=== PATIENT | male | born 1940 | race Caucasian/White ===

== ENCOUNTER 2017-11-14 11:52 | Inpatient (IN) ==
[2017-11-14] MEDS ORDERED: MORPHINE 2 MG/1 ML SYRINGE IV STA ×2 (13:52→17:01)
[2017-11-14] MEDS ORDERED: ONDANSETRON 4 MG/2 ML VIAL IV STA (13:52)
[2017-11-14] MEDS ORDERED: SODIUM CHLORIDE 0.9% 1,000 ML IV STA (13:52)
[2017-11-14] MEDS ORDERED: ONDANSETRON 4 MG/2 ML VIAL ONE (14:08)
[2017-11-14] MEDS ORDERED: MORPHINE 2 MG/1 ML SYRINGE ONE ×2 (14:08→17:02)
[2017-11-14 14:28] LABS: Basophils # 0.1 10*3/uL (0.0-0.2); Basophils % 0.7 % (0.0-0.8); Eosinophils # 0.3 10*3/uL (0.0-0.87); Eosinophils % 4.9 % (0.00-10.9); Hematocrit 29.1 VOL% (42.0-52.0); Hemoglobin 10.2 GM/DL (14.0-18.0); Immature Granulocytes % 0.9 %; Immature Granulocytes Absolute 0.06 #; Lymphocytes # 1.4 10*3/uL (1.4-4.0); Lymphocytes % 20.1 % (21.2-54.2); Mean Corpuscular HGB Conc 35.1 GM/DL (32-36); Mean Corpuscular Hemoglobin 32 PG (27-34); Mean Corpuscular Volume 92.4 FL (87-102); Mean Platelet Volume 9.7 FL (9.6-12.0); Monocytes # 0.4 10*3/uL (0.11-0.8); Monocytes % 5.6 % (1.7-12.7); Neutrophils # 4.8 10*3/uL (1.4-7.4); Neutrophils % 67.8 % (38.7-73.9); Platelet Count 126 T/CUMM (130-400); Red Blood Count 3.15 MC/CUMM (3.8-5.5); Red Cell Distribution Width 17.2 % (9.3-17.3)
[2017-11-14 14:44] LABS: Calcium 8.6 MG/DL (8.5-10.1); Osmolality,Calculated 275.8 MOS/KG (273-304); Potassium 4.1 MMOL/L (3.5-5.1)
[2017-11-14] MEDS ORDERED: GLUCAGON 1 MG VIAL IM PRN (15:02)
[2017-11-14] MEDS ORDERED: DEXTROSE 50% 25 GM/50 ML VIAL IV PRN (15:02)
[2017-11-14] MEDS ORDERED: ACETAMINOPHEN 325 MG TABLET PO PRN (15:02)
[2017-11-14] MEDS ORDERED: MORPHINE 2 MG/1 ML SYRINGE IV PRN ×2 (15:02→17:42)
[2017-11-14] MEDS ORDERED: ONDANSETRON 4 MG/2 ML VIAL IV PRN (15:02)
[2017-11-14] MEDS ORDERED: BISACODYL 5 MG TABLET PO PRN (15:02)
[2017-11-14 15:16] LABS: PT Patient Result 10.7 SECS
[2017-11-14 15:56] LABS: Apearance,Urine CLOUDY (Clear); Bacteria,Urine Many /HPF (Few); Bilirubin,Urine Negative (Negative); Blood, Urine Negative (Negative); Glucose,Urine (UA) Negative (Negative); Ketones,Urine Negative (Negative); Nitrite,Urine Positive (Negative); Protein,Urine 30 MG/DL; RBC,Urine 11 /HPF (0-4); Urine Color Yellow (Yellow); Urine Specific Gravity 1.009 (1.001-1.035); Urine Urobilinogen < 2.0 EU/DL (0.2-1.0); WBC,Urine 2292 /HPF (0-6)
[2017-11-14] MEDS: INSULIN REGULAR 100 UNIT/ML SUBCUT SCH ×2 (18:51→21:34)
[2017-11-14] MEDS: ENOXAPARIN 30 MG/0.3 ML SYRINGE SUBCUT SCH (19:06)
[2017-11-14] MEDS: SODIUM CHLORIDE 0.9% 1,000 ML IV SCH ×2 (19:22→20:00)
[2017-11-14] MEDS: DOCUSATE SODIUM 100 MG CAPSULE PO SCH (21:11)
[2017-11-14] MEDS: MORPHINE 2 MG/1 ML SYRINGE IV PRN (21:12)
[2017-11-14] MEDS: PREGABALIN 100 MG CAPSULE PO SCH (21:41)
[2017-11-14] MEDS: SIMVASTATIN 40 MG TABLET PO SCH (21:44)
[2017-11-14] MEDS: INSULIN GLARGINE 100 UNIT/ML SUBCUT SCH (21:44)
[2017-11-14] MEDS: MAGNESIUM CHLORIDE 64 MG TABLET PO SCH (21:44)
[2017-11-14] MEDS: LEVOFLOXACIN INJ 500 MG in PREMIX 1 EACH IV SCH (21:48)
[2017-11-15] MEDS ORDERED: ceFAZolin 2,000 MG in PREMIX 1 EACH IV ONE (08:00)
[2017-11-15] MEDS: INSULIN REGULAR 100 UNIT/ML SUBCUT SCH ×4 (08:17→21:00)
[2017-11-15] MEDS ORDERED: ALBUTEROL/IPRATROPIUM 3 ML NEB RESP TX ONE (08:31)
[2017-11-15] MEDS ORDERED: FAMOTIDINE 20 MG TABLET PO ONE (08:32)
[2017-11-15] MEDS: DOCUSATE SODIUM 100 MG CAPSULE PO SCH ×2 (08:39→21:37)
[2017-11-15] MEDS: TAMSULOSIN 0.4 MG CAPSULE PO SCH (08:39)
[2017-11-15] MEDS: ASPIRIN EC 81 MG TABLET PO SCH (08:39)
[2017-11-15] MEDS: INSULIN LISPRO 100 UNIT/ML SUBCUT SCH ×3 (08:39→17:09)
[2017-11-15] MEDS: FERROUS SULFATE 325 MG TABLET PO SCH (08:39)
[2017-11-15] MEDS: MULTIVITAMIN (CENTRUM) TABLET PO SCH (08:39)
[2017-11-15] MEDS: FUROSEMIDE 20 MG TABLET PO SCH (08:40)
[2017-11-15] MEDS: MAGNESIUM CHLORIDE 64 MG TABLET PO SCH ×2 (08:40→21:37)
[2017-11-15] MEDS: PREGABALIN 100 MG CAPSULE PO SCH ×2 (08:40→21:37)
[2017-11-15] MEDS: sitaGLIPtin 100 MG TABLET PO SCH (08:40)
[2017-11-15] MEDS: ASCORBIC ACID 500 MG TABLET PO SCH (08:40)
[2017-11-15] MEDS: FOLIC ACID 0.4 MG TABLET PO SCH (08:40)
[2017-11-15] MEDS: SERTRALINE 100 MG TABLET PO SCH (08:40)
[2017-11-15] MEDS: PANTOPRAZOLE 40 MG TABLET PO SCH (08:40)
[2017-11-15] MEDS: POTASSIUM CHLORIDE 20 MEQ TABLET PO SCH (08:40)
[2017-11-15] MEDS: CHOLECALCIFEROL 1,000 UNIT TABLET PO SCH (08:40)
[2017-11-15] MEDS ORDERED: PANTOPRAZOLE 40 MG TABLET PO SCH (09:00)
[2017-11-15] MEDS ORDERED: ACETAMINOPHEN 1,000 MG/100 ML VIAL IV ONE (09:46)
[2017-11-15] MEDS ORDERED: PROPOFOL 200 MG/20 ML VIAL IV ONE (10:30)
[2017-11-15] MEDS ORDERED: MIDAZOLAM 2 MG/2 ML VIAL ONE (10:30)
[2017-11-15] MEDS ORDERED: SEVOFLURANE 1 UNIT/15 MINUTE INH ONE (10:30)
[2017-11-15] MEDS ORDERED: fentaNYL 100 MCG/2 ML VIAL ONE (10:31)
[2017-11-15] MEDS ORDERED: ONDANSETRON 4 MG/2 ML VIAL ONE ×2 (10:31→11:13)
[2017-11-15] MEDS ORDERED: GLYCOPYRROLATE 0.4 MG/2 ML VIAL ONE (10:31)
[2017-11-15] MEDS ORDERED: ROCURONIUM 100 MG/10 ML VIAL IV ONE (10:32)
[2017-11-15] MEDS ORDERED: NEOSTIGMINE 10 MG/10 ML VIAL ONE (10:32)
[2017-11-15] MEDS ORDERED: DEXTROSE 50% 25 GM/50 ML VIAL IV PRN (10:42)
[2017-11-15] MEDS ORDERED: GLUCAGON 1 MG VIAL IM PRN (10:42)
[2017-11-15] MEDS ORDERED: ONDANSETRON 4 MG/2 ML VIAL IV PRN (10:53)
[2017-11-15] MEDS ORDERED: HYDROmorphone 2 MG/1 ML VIAL IV PRN (10:53)
[2017-11-15] MEDS ORDERED: HYDROmorphone 2 MG/1 ML VIAL ONE (11:13)
[2017-11-15] MEDS: ceFAZolin 1,000 MG in SYRINGE 1 EACH IV SCH ×2 (13:47→21:39)
[2017-11-15] MEDS ORDERED: ZINC OXIDE PASTE 113 GM TUBE TOP PRN (15:59)
[2017-11-15] MEDS: ENOXAPARIN 30 MG/0.3 ML SYRINGE SUBCUT SCH (17:09)
[2017-11-15] MEDS: INSULIN GLARGINE 100 UNIT/ML SUBCUT SCH (21:37)
[2017-11-15] MEDS: SIMVASTATIN 40 MG TABLET PO SCH (21:37)
[2017-11-15] MEDS: LEVOFLOXACIN INJ 500 MG in PREMIX 1 EACH IV SCH (21:52)
[2017-11-16 05:11] LABS: Basophils % 0.7 % (0.0-0.8); Eosinophils # 0.2 10*3/uL (0.0-0.87); Eosinophils % 3.9 % (0.00-10.9); Hematocrit 23.4 VOL% (42.0-52.0); Hemoglobin 7.8 GM/DL (14.0-18.0); Immature Granulocytes % 1.8 %; Lymphocytes # 0.9 10*3/uL (1.4-4.0); Mean Corpuscular HGB Conc 33.3 GM/DL (32-36); Mean Corpuscular Hemoglobin 31 PG (27-34); Mean Platelet Volume 9.5 FL (9.6-12.0); Monocytes # 0.4 10*3/uL (0.11-0.8); Monocytes % 6.7 % (1.7-12.7); Neutrophils % 70.9 % (38.7-73.9); Platelet Count 116 T/CUMM (130-400); Red Blood Count 2.49 MC/CUMM (3.8-5.5); Red Cell Distribution Width 17.9 % (9.3-17.3); White Blood Count 5.7 T/CUMM (4-12)
[2017-11-16 05:44] LABS: Calcium 8.2 MG/DL (8.5-10.1); Potassium 4.2 MMOL/L (3.5-5.1)
[2017-11-16] MEDS ORDERED: ceFAZolin 1,000 MG in SYRINGE 1 EACH IV SCH (08:00)
[2017-11-16] MEDS: ceFAZolin 1,000 MG in SYRINGE 1 EACH IV SCH (08:14)
[2017-11-16] MEDS: INSULIN REGULAR 100 UNIT/ML SUBCUT SCH ×4 (08:14→20:56)
[2017-11-16] MEDS ORDERED: SODIUM CHLORIDE 0.9% 1,000 ML IV PRN (08:15)
[2017-11-16] MEDS: CHOLECALCIFEROL 1,000 UNIT TABLET PO SCH (09:21)
[2017-11-16] MEDS: INSULIN LISPRO 100 UNIT/ML SUBCUT SCH ×3 (09:21→17:11)
[2017-11-16] MEDS: PREGABALIN 100 MG CAPSULE PO SCH ×2 (09:21→20:55)
[2017-11-16] MEDS: SERTRALINE 100 MG TABLET PO SCH (09:21)
[2017-11-16] MEDS: MULTIVITAMIN (CENTRUM) TABLET PO SCH (09:21)
[2017-11-16] MEDS: FERROUS SULFATE 325 MG TABLET PO SCH (09:21)
[2017-11-16] MEDS: sitaGLIPtin 100 MG TABLET PO SCH (09:21)
[2017-11-16] MEDS: DOCUSATE SODIUM 100 MG CAPSULE PO SCH ×2 (09:21→20:56)
[2017-11-16] MEDS: ASPIRIN EC 81 MG TABLET PO SCH (09:22)
[2017-11-16] MEDS: TAMSULOSIN 0.4 MG CAPSULE PO SCH (09:22)
[2017-11-16] MEDS: ASCORBIC ACID 500 MG TABLET PO SCH (09:22)
[2017-11-16] MEDS: POTASSIUM CHLORIDE 20 MEQ TABLET PO SCH (09:22)
[2017-11-16] MEDS: PANTOPRAZOLE 40 MG TABLET PO SCH (09:22)
[2017-11-16] MEDS: MAGNESIUM CHLORIDE 64 MG TABLET PO SCH ×2 (09:22→20:55)
[2017-11-16] MEDS: FOLIC ACID 0.4 MG TABLET PO SCH (09:22)
[2017-11-16] MEDS: FUROSEMIDE 20 MG TABLET PO SCH (09:22)
[2017-11-16] MEDS: SODIUM CHLORIDE 0.9% 1,000 ML IV SCH ×2 (10:06→10:07)
[2017-11-16] MEDS: BENZONATATE 100 MG CAPSULE PO SCH ×3 (13:31→20:55)
[2017-11-16] MEDS: ENOXAPARIN 30 MG/0.3 ML SYRINGE SUBCUT SCH (17:43)
[2017-11-16] MEDS: SIMVASTATIN 40 MG TABLET PO SCH (20:56)
[2017-11-16] MEDS: INSULIN GLARGINE 100 UNIT/ML SUBCUT SCH (20:58)
[2017-11-16] MEDS: LEVOFLOXACIN INJ 500 MG in PREMIX 1 EACH IV SCH (21:00)
[2017-11-17 08:30] LABS: Hematocrit 24.5 VOL% (42.0-52.0); Hemoglobin 8.4 GM/DL (14.0-18.0)
[2017-11-17] MEDS: SODIUM CHLORIDE 0.9% 1,000 ML IV SCH ×3 (09:16→23:50)
[2017-11-17] MEDS: DOCUSATE SODIUM 100 MG CAPSULE PO SCH ×2 (09:17→20:06)
[2017-11-17] MEDS: POTASSIUM CHLORIDE 20 MEQ TABLET PO SCH (09:17)
[2017-11-17] MEDS: BENZONATATE 100 MG CAPSULE PO SCH ×3 (09:17→20:06)
[2017-11-17] MEDS: sitaGLIPtin 100 MG TABLET PO SCH (09:17)
[2017-11-17] MEDS: FOLIC ACID 0.4 MG TABLET PO SCH (09:18)
[2017-11-17] MEDS: FUROSEMIDE 20 MG TABLET PO SCH (09:18)
[2017-11-17] MEDS: TAMSULOSIN 0.4 MG CAPSULE PO SCH (09:18)
[2017-11-17] MEDS: CHOLECALCIFEROL 1,000 UNIT TABLET PO SCH (09:18)
[2017-11-17] MEDS: FERROUS SULFATE 325 MG TABLET PO SCH (09:18)
[2017-11-17] MEDS: MAGNESIUM CHLORIDE 64 MG TABLET PO SCH ×2 (09:18→20:06)
[2017-11-17] MEDS: ASPIRIN EC 81 MG TABLET PO SCH (09:18)
[2017-11-17] MEDS: PANTOPRAZOLE 40 MG TABLET PO SCH (09:18)
[2017-11-17] MEDS: SERTRALINE 100 MG TABLET PO SCH (09:18)
[2017-11-17] MEDS: MULTIVITAMIN (CENTRUM) TABLET PO SCH (09:18)
[2017-11-17] MEDS: ASCORBIC ACID 500 MG TABLET PO SCH (09:18)
[2017-11-17] MEDS: PREGABALIN 100 MG CAPSULE PO SCH ×2 (09:18→22:59)
[2017-11-17] MEDS: INSULIN LISPRO 100 UNIT/ML SUBCUT SCH ×3 (09:19→17:22)
[2017-11-17] MEDS: INSULIN REGULAR 100 UNIT/ML SUBCUT SCH ×4 (09:19→20:05)
[2017-11-17] MEDS: ENOXAPARIN 30 MG/0.3 ML SYRINGE SUBCUT SCH (17:22)
[2017-11-17] MEDS: INSULIN GLARGINE 100 UNIT/ML SUBCUT SCH (20:05)
[2017-11-17] MEDS: SIMVASTATIN 40 MG TABLET PO SCH (20:06)
[2017-11-17] MEDS: LEVOFLOXACIN INJ 500 MG in PREMIX 1 EACH IV SCH (20:07)
[2017-11-17] MEDS: MORPHINE 2 MG/1 ML SYRINGE IV PRN (20:08)
[2017-11-18] MEDS ORDERED: FUROSEMIDE 40 MG TABLET PO ONE (09:43)
[2017-11-18] MEDS ORDERED: BISACODYL 10 MG SUPP RECTAL PRN (09:43)
[2017-11-18] MEDS: INSULIN REGULAR 100 UNIT/ML SUBCUT SCH ×4 (09:48→21:18)
[2017-11-18] MEDS: INSULIN LISPRO 100 UNIT/ML SUBCUT SCH ×3 (09:48→16:45)
[2017-11-18] MEDS: FERROUS SULFATE 325 MG TABLET PO SCH (09:49)
[2017-11-18] MEDS: SERTRALINE 100 MG TABLET PO SCH (09:49)
[2017-11-18] MEDS: MAGNESIUM CHLORIDE 64 MG TABLET PO SCH ×2 (09:49→21:14)
[2017-11-18] MEDS: DOCUSATE SODIUM 100 MG CAPSULE PO SCH ×2 (09:49→21:15)
[2017-11-18] MEDS: BENZONATATE 100 MG CAPSULE PO SCH ×3 (09:49→21:15)
[2017-11-18] MEDS: ASPIRIN EC 81 MG TABLET PO SCH (09:49)
[2017-11-18] MEDS: PANTOPRAZOLE 40 MG TABLET PO SCH (09:49)
[2017-11-18] MEDS: ASCORBIC ACID 500 MG TABLET PO SCH (09:49)
[2017-11-18] MEDS: PREGABALIN 100 MG CAPSULE PO SCH ×2 (09:49→21:15)
[2017-11-18] MEDS: CHOLECALCIFEROL 1,000 UNIT TABLET PO SCH (09:49)
[2017-11-18] MEDS: sitaGLIPtin 100 MG TABLET PO SCH (09:50)
[2017-11-18] MEDS: MULTIVITAMIN (CENTRUM) TABLET PO SCH (09:50)
[2017-11-18] MEDS: POTASSIUM CHLORIDE 20 MEQ TABLET PO SCH (09:50)
[2017-11-18] MEDS: FOLIC ACID 0.4 MG TABLET PO SCH (09:51)
[2017-11-18] MEDS: FUROSEMIDE 20 MG TABLET PO SCH (09:51)
[2017-11-18] MEDS: TAMSULOSIN 0.4 MG CAPSULE PO SCH (09:51)
[2017-11-18 10:15] LABS: Basophils % 0.5 % (0.0-0.8); Eosinophils # 0.3 10*3/uL (0.0-0.87); Eosinophils % 5.1 % (0.00-10.9); Hematocrit 23.3 VOL% (42.0-52.0); Hemoglobin 8.3 GM/DL (14.0-18.0); Immature Granulocytes % 2.9 %; Immature Granulocytes Absolute 0.16 #; Lymphocytes # 1.2 10*3/uL (1.4-4.0); Lymphocytes % 22.5 % (21.2-54.2); Mean Corpuscular HGB Conc 35.6 GM/DL (32-36); Mean Corpuscular Hemoglobin 32 PG (27-34); Mean Corpuscular Volume 88.9 FL (87-102); Mean Platelet Volume 9.4 FL (9.6-12.0); Monocytes # 0.3 10*3/uL (0.11-0.8); Monocytes % 5.6 % (1.7-12.7); Neutrophils # 3.5 10*3/uL (1.4-7.4); Neutrophils % 63.4 % (38.7-73.9); Platelet Count 129 T/CUMM (130-400); Red Blood Count 2.62 MC/CUMM (3.8-5.5); Red Cell Distribution Width 18.4 % (9.3-17.3); White Blood Count 5.5 T/CUMM (4-12)
[2017-11-18] MEDS: SODIUM CHLORIDE 0.9% 1,000 ML IV SCH (15:01)
[2017-11-18] MEDS: HYDROcodone/CHLORPHENIRAMINE ER 5 ML UDCUP PO PRN (17:31)
[2017-11-18] MEDS: ENOXAPARIN 30 MG/0.3 ML SYRINGE SUBCUT SCH (19:48)
[2017-11-18] MEDS: SIMVASTATIN 40 MG TABLET PO SCH (21:15)
[2017-11-18] MEDS: INSULIN GLARGINE 100 UNIT/ML SUBCUT SCH (21:19)
[2017-11-18] MEDS: LEVOFLOXACIN INJ 500 MG in PREMIX 1 EACH IV SCH (21:19)
[2017-11-18] MEDS: MAGNESIUM HYDROXIDE SUSP 30 ML UDCUP PO PRN (21:29)
[2017-11-19 06:59] LABS: Basophils % 0.6 % (0.0-0.8); Eosinophils # 0.2 10*3/uL (0.0-0.87); Eosinophils % 4.8 % (0.00-10.9); Hematocrit 23.6 VOL% (42.0-52.0); Immature Granulocytes % 2.2 %; Immature Granulocytes Absolute 0.11 #; Lymphocytes # 1.1 10*3/uL (1.4-4.0); Lymphocytes % 22.5 % (21.2-54.2); Mean Corpuscular HGB Conc 33.9 GM/DL (32-36); Mean Corpuscular Hemoglobin 30 PG (27-34); Mean Corpuscular Volume 89.4 FL (87-102); Mean Platelet Volume 9.8 FL (9.6-12.0); Monocytes # 0.3 10*3/uL (0.11-0.8); Monocytes % 5.8 % (1.7-12.7); Neutrophils # 3.2 10*3/uL (1.4-7.4); Neutrophils % 64.1 % (38.7-73.9); Platelet Count 140 T/CUMM (130-400); Red Blood Count 2.64 MC/CUMM (3.8-5.5); Red Cell Distribution Width 18.2 % (9.3-17.3)
[2017-11-19 07:17] LABS: Calcium 8.3 MG/DL (8.5-10.1); Osmolality,Calculated 286.3 MOS/KG (273-304); Potassium 3.9 MMOL/L (3.5-5.1)
[2017-11-19] MEDS ORDERED: ACETAMINOPHEN 325 MG TABLET PO PRN (07:42)
[2017-11-19] MEDS ORDERED: diphenhydrAMINE 50 MG/1 ML VIAL IV PRN (07:42)
[2017-11-19] MEDS ORDERED: SODIUM CHLORIDE 0.9% 1,000 ML IV PRN (07:42)
[2017-11-19] MEDS ORDERED: FUROSEMIDE 20 MG/2 ML VIAL IV PRN (07:42)
[2017-11-19] MEDS: INSULIN REGULAR 100 UNIT/ML SUBCUT SCH ×4 (08:55→21:48)
[2017-11-19] MEDS: INSULIN LISPRO 100 UNIT/ML SUBCUT SCH ×3 (08:57→16:45)
[2017-11-19] MEDS: SODIUM CHLORIDE 0.9% 1,000 ML IV SCH ×2 (10:25→16:44)
[2017-11-19] MEDS: PREGABALIN 100 MG CAPSULE PO SCH ×2 (10:48→20:04)
[2017-11-19] MEDS: FUROSEMIDE 20 MG TABLET PO SCH (10:49)
[2017-11-19] MEDS: ASPIRIN EC 81 MG TABLET PO SCH (10:49)
[2017-11-19] MEDS: ASCORBIC ACID 500 MG TABLET PO SCH (10:49)
[2017-11-19] MEDS: SERTRALINE 100 MG TABLET PO SCH (10:51)
[2017-11-19] MEDS: FERROUS SULFATE 325 MG TABLET PO SCH (10:51)
[2017-11-19] MEDS: BENZONATATE 100 MG CAPSULE PO SCH ×3 (10:51→20:04)
[2017-11-19] MEDS: MAGNESIUM CHLORIDE 64 MG TABLET PO SCH ×2 (10:52→20:04)
[2017-11-19] MEDS: FOLIC ACID 0.4 MG TABLET PO SCH (10:52)
[2017-11-19] MEDS: MULTIVITAMIN (CENTRUM) TABLET PO SCH (10:52)
[2017-11-19] MEDS: CHOLECALCIFEROL 1,000 UNIT TABLET PO SCH (10:52)
[2017-11-19] MEDS: TAMSULOSIN 0.4 MG CAPSULE PO SCH (10:53)
[2017-11-19] MEDS: DOCUSATE SODIUM 100 MG CAPSULE PO SCH ×2 (10:53→20:04)
[2017-11-19] MEDS: sitaGLIPtin 100 MG TABLET PO SCH (10:53)
[2017-11-19] MEDS: PANTOPRAZOLE 40 MG TABLET PO SCH (10:53)
[2017-11-19] MEDS: HYDROcodone/CHLORPHENIRAMINE ER 5 ML UDCUP PO PRN (10:55)
[2017-11-19] MEDS: MAGNESIUM HYDROXIDE SUSP 30 ML UDCUP PO PRN (10:57)
[2017-11-19] MEDS: POTASSIUM CHLORIDE 20 MEQ TABLET PO SCH (14:29)
[2017-11-19] MEDS ORDERED: diphenhydrAMINE 50 MG/1 ML VIAL ONE (16:31)
[2017-11-19] MEDS: ENOXAPARIN 30 MG/0.3 ML SYRINGE SUBCUT SCH (19:40)
[2017-11-19] MEDS: SIMVASTATIN 40 MG TABLET PO SCH (20:04)
[2017-11-19] MEDS: LEVOFLOXACIN INJ 500 MG in PREMIX 1 EACH IV SCH (20:04)
[2017-11-19] MEDS: INSULIN GLARGINE 100 UNIT/ML SUBCUT SCH (21:47)
[2017-11-20] MEDS ORDERED: FUROSEMIDE 20 MG/2 ML VIAL ONE (00:23)
[2017-11-20 06:09] LABS: Basophils # 0.1 10*3/uL (0.0-0.2); Basophils % 0.9 % (0.0-0.8); Eosinophils # 0.4 10*3/uL (0.0-0.87); Eosinophils % 6.4 % (0.00-10.9); Hematocrit 28.5 VOL% (42.0-52.0); Immature Granulocytes % 1.7 %; Immature Granulocytes Absolute 0.11 #; Lymphocytes # 1.7 10*3/uL (1.4-4.0); Lymphocytes % 25.6 % (21.2-54.2); Mean Corpuscular HGB Conc 34.7 GM/DL (32-36); Mean Corpuscular Hemoglobin 30 PG (27-34); Mean Corpuscular Volume 85.6 FL (87-102); Mean Platelet Volume 9.6 FL (9.6-12.0); Monocytes # 0.5 10*3/uL (0.11-0.8); Neutrophils # 3.8 10*3/uL (1.4-7.4); Neutrophils % 58.4 % (38.7-73.9); Platelet Count 140 T/CUMM (130-400); Red Cell Distribution Width 19.1 % (9.3-17.3)
[2017-11-20 06:11] LABS: White Blood Count 6.6 T/CUMM (4-12)
[2017-11-20 06:12] LABS: Hemoglobin 9.9 GM/DL (14.0-18.0); Red Blood Count 3.33 MC/CUMM (3.8-5.5)
[2017-11-20] MEDS: SODIUM CHLORIDE 0.9% 1,000 ML IV SCH (06:16)
[2017-11-20] MEDS: INSULIN REGULAR 100 UNIT/ML SUBCUT SCH ×2 (10:00→12:31)
[2017-11-20] MEDS: INSULIN LISPRO 100 UNIT/ML SUBCUT SCH ×2 (10:00→12:31)
[2017-11-20] MEDS: PREGABALIN 100 MG CAPSULE PO SCH (11:08)
[2017-11-20] MEDS: ASCORBIC ACID 500 MG TABLET PO SCH (11:09)
[2017-11-20] MEDS: MAGNESIUM CHLORIDE 64 MG TABLET PO SCH (11:09)
[2017-11-20] MEDS: POTASSIUM CHLORIDE 20 MEQ TABLET PO SCH (11:10)
[2017-11-20] MEDS: FUROSEMIDE 20 MG TABLET PO SCH (11:10)
[2017-11-20] MEDS: PANTOPRAZOLE 40 MG TABLET PO SCH (11:10)
[2017-11-20] MEDS: CHOLECALCIFEROL 1,000 UNIT TABLET PO SCH (11:11)
[2017-11-20] MEDS: ASPIRIN EC 81 MG TABLET PO SCH (11:11)
[2017-11-20] MEDS: FOLIC ACID 0.4 MG TABLET PO SCH (11:12)
[2017-11-20] MEDS: MULTIVITAMIN (CENTRUM) TABLET PO SCH (11:12)
[2017-11-20] MEDS: FERROUS SULFATE 325 MG TABLET PO SCH (11:13)
[2017-11-20] MEDS: BENZONATATE 100 MG CAPSULE PO SCH (11:13)
[2017-11-20] MEDS: SERTRALINE 100 MG TABLET PO SCH (11:13)
[2017-11-20] MEDS: DOCUSATE SODIUM 100 MG CAPSULE PO SCH (11:14)
[2017-11-20] MEDS: TAMSULOSIN 0.4 MG CAPSULE PO SCH (11:14)
[2017-11-20] MEDS: sitaGLIPtin 100 MG TABLET PO SCH (11:18)
[2017-11-20 13:17] VITALS: BP 112/52
== END 2017-11-20 14:40 | disposition swing bed (61) | DRG 563 ==
LOC: EDUNIT# → EDBD → N.ED 11:52 → N.EDINP 15:27 → N.3E 17:46
PROVIDERS: ADMIT Family Medicine; ATTEND Family Medicine

== ENCOUNTER 2018-01-04 14:41 | Inpatient (IN) ==
[2018-01-04] MEDS ORDERED: LEVOFLOXACIN INJ 750 MG in PREMIX 1 EACH IV STA (15:04)
[2018-01-04] MEDS ORDERED: ALBUTEROL/IPRATROPIUM 3 ML NEB RESP TX STA (15:04)
[2018-01-04] MEDS ORDERED: methylPREDNISolone SOD SUC 125 MG/2 ML VIAL IV STA (15:04)
[2018-01-04] MEDS ORDERED: methylPREDNISolone SOD SUC 125 MG/2 ML VIAL ONE (15:11)
[2018-01-04] MEDS ORDERED: LEVOFLOXACIN INJ 150 ML IV ONE (15:11)
[2018-01-04 15:50] LABS: Basophils % 0.6 % (0.0-0.8); Eosinophils # 0.3 10*3/uL (0.0-0.87); Eosinophils % 4.1 % (0.00-10.9); Hematocrit 27.8 VOL% (42.0-52.0); Hemoglobin 9.7 GM/DL (14.0-18.0); Immature Granulocytes % 0.7 %; Immature Granulocytes Absolute 0.05 #; Lymphocytes % 14.5 % (21.2-54.2); Mean Corpuscular HGB Conc 34.9 GM/DL (32-36); Mean Corpuscular Hemoglobin 31 PG (27-34); Mean Corpuscular Volume 89.4 FL (87-102); Mean Platelet Volume 9.8 FL (9.6-12.0); Monocytes # 0.5 10*3/uL (0.11-0.8); Monocytes % 6.8 % (1.7-12.7); Neutrophils % 73.3 % (38.7-73.9); Platelet Count 142 T/CUMM (130-400); Red Blood Count 3.11 MC/CUMM (3.8-5.5); White Blood Count 6.8 T/CUMM (4-12)
[2018-01-04 15:59] LABS: INR 1.1; PT Patient Result 11.2 SECS; Partial Thromboplastin Time 25.7 SECS (0-40)
[2018-01-04 16:21] LABS: Alanine Aminotransferase 27 U/L (16-61); Albumin 3.5 G/DL (3.4-5.0); Alkaline Phosphatase 86 U/L (45-117); Aspartate Amino Transferase 30 U/L (0-37); Blood Urea Nitrogen 20 MG/DL (7-18); Calcium 8.3 MG/DL (8.5-10.1); Glucose 89 MG/DL (74-106); Osmolality,Calculated 278.5 MOS/KG (273-304); Potassium 3.6 MMOL/L (3.5-5.1); Sodium 139 MMOL/L (136-145); Total Protein 6.5 G/DL (6.4-8.3); Troponin I Only < 0.015 NG/ML (0.00-0.045)
[2018-01-04 16:44] LABS: Apearance,Urine CLOUDY (Clear); Bacteria,Urine Many /HPF (Few); Bilirubin,Urine Negative (Negative); Blood, Urine Negative (Negative); Glucose,Urine (UA) Negative (Negative); Hyaline Casts,Urine 6 /LPF (0-3); Ketones,Urine Negative (Negative); Nitrite,Urine Negative (Negative); Protein,Urine Negative; RBC,Urine 1 /HPF (0-4); Squamous Epithelial Cell,Urine Occasional /HPF (0-10); Urine Color Yellow (Yellow); Urine Urobilinogen < 2.0 EU/DL (0.2-1.0); WBC,Urine 47 /HPF (0-6)
[2018-01-04] MEDS ORDERED: HYDROmorphone 2 MG/1 ML VIAL IV STA (18:53)
[2018-01-04] MEDS ORDERED: ENOXAPARIN 100 MG/ML SYRINGE SUBCUT STA (18:53)
[2018-01-04] MEDS ORDERED: ASPIRIN 325 MG TABLET PO STA (18:53)
[2018-01-04] MEDS ORDERED: ENOXAPARIN 120 MG/0.8 ML SYRINGE SUBCUT ONE (19:06)
[2018-01-04] MEDS ORDERED: HYDROmorphone 2 MG/1 ML VIAL ONE (19:06)
[2018-01-04] MEDS ORDERED: ASPIRIN 325 MG TABLET ONE (19:06)
[2018-01-04] MEDS ORDERED: ONDANSETRON 4 MG/2 ML VIAL IV PRN (19:12)
[2018-01-04] MEDS ORDERED: DEXTROSE 50% 25 GM/50 ML VIAL IV PRN (19:12)
[2018-01-04] MEDS ORDERED: ALBUTEROL/IPRATROPIUM 3 ML NEB RESP TX PRN (19:12)
[2018-01-04] MEDS ORDERED: GLUCAGON 1 MG VIAL IM PRN (19:12)
[2018-01-04] MEDS ORDERED: INSULIN REGULAR 100 UNIT/ML SUBCUT SCH (21:00)
[2018-01-04] MEDS ORDERED: PREGABALIN 300 MG PO SCH (21:00)
[2018-01-04] MEDS: INSULIN LISPRO 100 UNIT/ML SUBCUT SCH (21:37)
[2018-01-04] MEDS: INSULIN GLARGINE 100 UNIT/ML SUBCUT SCH (21:38)
[2018-01-04] MEDS: MULTIVITAMIN (CENTRUM) TABLET PO SCH (21:38)
[2018-01-04] MEDS: ASCORBIC ACID 500 MG TABLET PO SCH (21:39)
[2018-01-04] MEDS: CHOLECALCIFEROL 1,000 UNIT TABLET PO SCH (21:39)
[2018-01-04] MEDS: FOLIC ACID 0.4 MG TABLET PO SCH (21:39)
[2018-01-04] MEDS: MAGNESIUM CHLORIDE 64 MG TABLET PO SCH (21:39)
[2018-01-04] MEDS: SERTRALINE 100 MG TABLET PO SCH (21:40)
[2018-01-04] MEDS: PREGABALIN 100 MG CAPSULE PO SCH (21:40)
[2018-01-04] MEDS: FERROUS SULFATE 325 MG TABLET PO SCH (21:40)
[2018-01-04] MEDS: SIMVASTATIN 40 MG TABLET PO SCH (21:46)
[2018-01-04] MEDS: TAMSULOSIN 0.4 MG CAPSULE PO SCH (21:46)
[2018-01-04] MEDS: methylPREDNISolone SOD SUC 125 MG/2 ML VIAL IV SCH (22:45)
[2018-01-05 01:07] LABS: Basophils % 0.2 % (0.0-0.8); Eosinophils % 0.3 % (0.00-10.9); Hematocrit 28.2 VOL% (42.0-52.0); Hemoglobin 9.7 GM/DL (14.0-18.0); Immature Granulocytes % 1.1 %; Immature Granulocytes Absolute 0.07 #; Lymphocytes # 0.5 10*3/uL (1.4-4.0); Lymphocytes % 7.4 % (21.2-54.2); Mean Corpuscular HGB Conc 34.4 GM/DL (32-36); Mean Corpuscular Hemoglobin 31 PG (27-34); Mean Corpuscular Volume 91.3 FL (87-102); Mean Platelet Volume 9.6 FL (9.6-12.0); Monocytes % 0.6 % (1.7-12.7); Neutrophils # 5.6 10*3/uL (1.4-7.4); Neutrophils % 90.4 % (38.7-73.9); Platelet Count 131 T/CUMM (130-400); Red Blood Count 3.09 MC/CUMM (3.8-5.5); Red Cell Distribution Width 21.6 % (9.3-17.3); White Blood Count 6.2 T/CUMM (4-12)
[2018-01-05] MEDS: ALBUTEROL/IPRATROPIUM 3 ML NEB RESP TX SCH ×4 (01:21→19:17)
[2018-01-05 01:40] LABS: Calcium 8.2 MG/DL (8.5-10.1); Osmolality,Calculated 291.1 MOS/KG (273-304); Potassium 4.3 MMOL/L (3.5-5.1)
[2018-01-05] MEDS ORDERED: SERTRALINE 100 MG TABLET PO SCH (09:00)
[2018-01-05] MEDS: MAGNESIUM CHLORIDE 64 MG TABLET PO SCH ×2 (09:55→21:16)
[2018-01-05] MEDS: INSULIN LISPRO 100 UNIT/ML SUBCUT SCH ×7 (09:55→21:18)
[2018-01-05] MEDS: methylPREDNISolone SOD SUC 125 MG/2 ML VIAL IV SCH (09:55)
[2018-01-05] MEDS: POTASSIUM CHLORIDE 20 MEQ TABLET PO SCH (09:55)
[2018-01-05] MEDS: LORATADINE 10 MG TABLET PO SCH (09:57)
[2018-01-05] MEDS: PSEUDOEPHEDRINE 30 MG TABLET PO SCH ×2 (09:57→15:18)
[2018-01-05] MEDS: PANTOPRAZOLE 40 MG TABLET PO SCH (09:57)
[2018-01-05] MEDS: MULTIVITAMIN (BEROCCA) TABLET PO SCH (09:57)
[2018-01-05] MEDS: PREGABALIN 100 MG CAPSULE PO SCH ×2 (09:57→21:17)
[2018-01-05] MEDS: ASPIRIN EC 81 MG TABLET PO SCH (09:57)
[2018-01-05] MEDS: sitaGLIPtin 100 MG TABLET PO SCH (09:57)
[2018-01-05] MEDS: ENOXAPARIN 40 MG/0.4 ML SYRINGE SUBCUT SCH (10:59)
[2018-01-05] MEDS ORDERED: methylPREDNISolone SOD SUC 40 MG/1 ML VIAL IM SCH (11:00)
[2018-01-05] MEDS: methylPREDNISolone SOD SUC 40 MG/1 ML VIAL IV SCH ×2 (11:01→18:10)
[2018-01-05] MEDS: ZINC OXIDE PASTE 113 GM TUBE TOP SCH ×2 (12:30→21:50)
[2018-01-05] MEDS: LEVOFLOXACIN INJ 750 MG in PREMIX 1 EACH IV SCH (15:18)
[2018-01-05] MEDS: SIMVASTATIN 40 MG TABLET PO SCH (21:16)
[2018-01-05] MEDS: FOLIC ACID 0.4 MG TABLET PO SCH (21:16)
[2018-01-05] MEDS: SERTRALINE 100 MG TABLET PO SCH (21:16)
[2018-01-05] MEDS: CHOLECALCIFEROL 1,000 UNIT TABLET PO SCH (21:16)
[2018-01-05] MEDS: ACETAMINOPHEN/diphenhydrAMINE 500-25 MG TABLET PO PRN (21:16)
[2018-01-05] MEDS: FERROUS SULFATE 325 MG TABLET PO SCH (21:16)
[2018-01-05] MEDS: ASCORBIC ACID 500 MG TABLET PO SCH (21:16)
[2018-01-05] MEDS: MULTIVITAMIN (CENTRUM) TABLET PO SCH (21:16)
[2018-01-05] MEDS: TAMSULOSIN 0.4 MG CAPSULE PO SCH (21:16)
[2018-01-05] MEDS: INSULIN GLARGINE 100 UNIT/ML SUBCUT SCH (21:17)
[2018-01-06] MEDS: ALBUTEROL/IPRATROPIUM 3 ML NEB RESP TX SCH ×4 (00:21→19:21)
[2018-01-06] MEDS: methylPREDNISolone SOD SUC 40 MG/1 ML VIAL IV SCH ×3 (04:37→20:18)
[2018-01-06 05:43] LABS: Calcium 8.8 MG/DL (8.5-10.1)
[2018-01-06] MEDS: INSULIN LISPRO 100 UNIT/ML SUBCUT SCH ×7 (08:50→21:24)
[2018-01-06] MEDS: sitaGLIPtin 100 MG TABLET PO SCH (09:11)
[2018-01-06] MEDS: ASPIRIN EC 81 MG TABLET PO SCH (09:11)
[2018-01-06] MEDS: LORATADINE 10 MG TABLET PO SCH (09:11)
[2018-01-06] MEDS: PSEUDOEPHEDRINE 30 MG TABLET PO SCH ×2 (09:11→15:57)
[2018-01-06] MEDS: MULTIVITAMIN (BEROCCA) TABLET PO SCH (09:11)
[2018-01-06] MEDS: PANTOPRAZOLE 40 MG TABLET PO SCH (09:11)
[2018-01-06] MEDS: ZINC OXIDE PASTE 113 GM TUBE TOP SCH ×2 (09:12→21:26)
[2018-01-06] MEDS: MAGNESIUM CHLORIDE 64 MG TABLET PO SCH ×2 (09:12→21:25)
[2018-01-06] MEDS: POTASSIUM CHLORIDE 20 MEQ TABLET PO SCH (09:12)
[2018-01-06] MEDS: PREGABALIN 100 MG CAPSULE PO SCH ×2 (09:12→21:20)
[2018-01-06] MEDS: ENOXAPARIN 40 MG/0.4 ML SYRINGE SUBCUT SCH (10:21)
[2018-01-06] MEDS: NYSTATIN 500,000 UNIT/5 ML UDCUP SWISH/SWAL SCH ×3 (12:12→21:19)
[2018-01-06] MEDS: LEVOFLOXACIN INJ 750 MG in PREMIX 1 EACH IV SCH (15:57)
[2018-01-06] MEDS: TAMSULOSIN 0.4 MG CAPSULE PO SCH (21:20)
[2018-01-06] MEDS: FERROUS SULFATE 325 MG TABLET PO SCH (21:20)
[2018-01-06] MEDS: ASCORBIC ACID 500 MG TABLET PO SCH (21:20)
[2018-01-06] MEDS: SERTRALINE 100 MG TABLET PO SCH (21:20)
[2018-01-06] MEDS: CHOLECALCIFEROL 1,000 UNIT TABLET PO SCH (21:20)
[2018-01-06] MEDS: FOLIC ACID 0.4 MG TABLET PO SCH (21:21)
[2018-01-06] MEDS: MULTIVITAMIN (CENTRUM) TABLET PO SCH (21:21)
[2018-01-06] MEDS: INSULIN GLARGINE 100 UNIT/ML SUBCUT SCH (21:24)
[2018-01-06] MEDS: SIMVASTATIN 40 MG TABLET PO SCH (21:25)
[2018-01-07] MEDS: ACETAMINOPHEN/diphenhydrAMINE 500-25 MG TABLET PO PRN ×2 (00:36→21:05)
[2018-01-07] MEDS: ALBUTEROL/IPRATROPIUM 3 ML NEB RESP TX SCH ×4 (01:05→19:47)
[2018-01-07] MEDS: methylPREDNISolone SOD SUC 40 MG/1 ML VIAL IV SCH ×3 (04:23→21:08)
[2018-01-07 06:47] LABS: Basophils % 0.2 % (0.0-0.8); Hematocrit 29.9 VOL% (42.0-52.0); Hemoglobin 9.8 GM/DL (14.0-18.0); Immature Granulocytes % 1.3 %; Immature Granulocytes Absolute 0.08 #; Lymphocytes # 0.7 10*3/uL (1.4-4.0); Lymphocytes % 10.9 % (21.2-54.2); Mean Corpuscular HGB Conc 32.8 GM/DL (32-36); Mean Corpuscular Hemoglobin 31 PG (27-34); Mean Corpuscular Volume 94.3 FL (87-102); Mean Platelet Volume 10.2 FL (9.6-12.0); Monocytes # 0.2 10*3/uL (0.11-0.8); Monocytes % 3.3 % (1.7-12.7); Neutrophils % 84.3 % (38.7-73.9); Platelet Count 120 T/CUMM (130-400); Red Blood Count 3.17 MC/CUMM (3.8-5.5); Red Cell Distribution Width 21.8 % (9.3-17.3)
[2018-01-07 07:19] LABS: Calcium 8.7 MG/DL (8.5-10.1); Osmolality,Calculated 285.7 MOS/KG (273-304); Potassium 4.3 MMOL/L (3.5-5.1)
[2018-01-07] MEDS: INSULIN LISPRO 100 UNIT/ML SUBCUT SCH ×7 (08:48→21:04)
[2018-01-07] MEDS: LEVOFLOXACIN INJ 750 MG in PREMIX 1 EACH IV SCH (08:50)
[2018-01-07] MEDS: ENOXAPARIN 40 MG/0.4 ML SYRINGE SUBCUT SCH (08:51)
[2018-01-07] MEDS: NYSTATIN 500,000 UNIT/5 ML UDCUP SWISH/SWAL SCH ×4 (08:52→21:06)
[2018-01-07] MEDS: POTASSIUM CHLORIDE 20 MEQ TABLET PO SCH (08:52)
[2018-01-07] MEDS: MAGNESIUM CHLORIDE 64 MG TABLET PO SCH ×2 (08:52→21:07)
[2018-01-07] MEDS: PREGABALIN 100 MG CAPSULE PO SCH ×2 (08:52→21:05)
[2018-01-07] MEDS: sitaGLIPtin 100 MG TABLET PO SCH (08:52)
[2018-01-07] MEDS: PANTOPRAZOLE 40 MG TABLET PO SCH (08:52)
[2018-01-07] MEDS: MAGNESIUM HYDROXIDE SUSP 30 ML UDCUP PO PRN (08:52)
[2018-01-07] MEDS: MULTIVITAMIN (BEROCCA) TABLET PO SCH (08:53)
[2018-01-07] MEDS: ASPIRIN EC 81 MG TABLET PO SCH (08:53)
[2018-01-07] MEDS: LORATADINE 10 MG TABLET PO SCH (08:53)
[2018-01-07] MEDS: ZINC OXIDE PASTE 113 GM TUBE TOP SCH ×2 (08:53→21:05)
[2018-01-07] MEDS: PSEUDOEPHEDRINE 30 MG TABLET PO SCH ×2 (08:53→14:10)
[2018-01-07] MEDS ORDERED: DORNASE ALFA 2.5 MG/2.5 ML VIAL RESP TX SCH (10:00)
[2018-01-07] MEDS: INSULIN GLARGINE 100 UNIT/ML SUBCUT SCH (21:04)
[2018-01-07] MEDS: FOLIC ACID 0.4 MG TABLET PO SCH (21:05)
[2018-01-07] MEDS: ASCORBIC ACID 500 MG TABLET PO SCH (21:06)
[2018-01-07] MEDS: FERROUS SULFATE 325 MG TABLET PO SCH (21:07)
[2018-01-07] MEDS: MULTIVITAMIN (CENTRUM) TABLET PO SCH (21:07)
[2018-01-07] MEDS: CHOLECALCIFEROL 1,000 UNIT TABLET PO SCH (21:07)
[2018-01-07] MEDS: SERTRALINE 100 MG TABLET PO SCH (21:07)
[2018-01-07] MEDS: SIMVASTATIN 40 MG TABLET PO SCH (21:08)
[2018-01-07] MEDS: TAMSULOSIN 0.4 MG CAPSULE PO SCH (21:08)
[2018-01-08] MEDS: ALBUTEROL/IPRATROPIUM 3 ML NEB RESP TX SCH ×4 (01:20→19:17)
[2018-01-08] MEDS: methylPREDNISolone SOD SUC 40 MG/1 ML VIAL IV SCH ×3 (06:32→21:49)
[2018-01-08] MEDS: LEVOFLOXACIN INJ 750 MG in PREMIX 1 EACH IV SCH (10:02)
[2018-01-08] MEDS: NYSTATIN 500,000 UNIT/5 ML UDCUP SWISH/SWAL SCH ×4 (10:03→21:49)
[2018-01-08] MEDS: ENOXAPARIN 40 MG/0.4 ML SYRINGE SUBCUT SCH (10:03)
[2018-01-08] MEDS: MAGNESIUM HYDROXIDE SUSP 30 ML UDCUP PO PRN (10:04)
[2018-01-08] MEDS: INSULIN LISPRO 100 UNIT/ML SUBCUT SCH ×7 (10:04→21:51)
[2018-01-08] MEDS: ASPIRIN EC 81 MG TABLET PO SCH (10:05)
[2018-01-08] MEDS: MULTIVITAMIN (BEROCCA) TABLET PO SCH (10:05)
[2018-01-08] MEDS: MAGNESIUM CHLORIDE 64 MG TABLET PO SCH ×2 (10:05→21:49)
[2018-01-08] MEDS: PSEUDOEPHEDRINE 30 MG TABLET PO SCH ×2 (10:05→15:48)
[2018-01-08] MEDS: POTASSIUM CHLORIDE 20 MEQ TABLET PO SCH (10:05)
[2018-01-08] MEDS: PANTOPRAZOLE 40 MG TABLET PO SCH (10:05)
[2018-01-08] MEDS: LORATADINE 10 MG TABLET PO SCH (10:05)
[2018-01-08] MEDS: PREGABALIN 100 MG CAPSULE PO SCH ×2 (10:05→21:49)
[2018-01-08] MEDS: ZINC OXIDE PASTE 113 GM TUBE TOP SCH ×2 (10:06→21:52)
[2018-01-08] MEDS: sitaGLIPtin 100 MG TABLET PO SCH (10:06)
[2018-01-08] MEDS: ACETAMINOPHEN/diphenhydrAMINE 500-25 MG TABLET PO PRN (21:48)
[2018-01-08] MEDS: FOLIC ACID 0.4 MG TABLET PO SCH (21:49)
[2018-01-08] MEDS: CHOLECALCIFEROL 1,000 UNIT TABLET PO SCH (21:49)
[2018-01-08] MEDS: SIMVASTATIN 40 MG TABLET PO SCH (21:50)
[2018-01-08] MEDS: ASCORBIC ACID 500 MG TABLET PO SCH (21:50)
[2018-01-08] MEDS: MULTIVITAMIN (CENTRUM) TABLET PO SCH (21:50)
[2018-01-08] MEDS: FERROUS SULFATE 325 MG TABLET PO SCH (21:50)
[2018-01-08] MEDS: TAMSULOSIN 0.4 MG CAPSULE PO SCH (21:50)
[2018-01-08] MEDS: SERTRALINE 100 MG TABLET PO SCH (21:50)
[2018-01-08] MEDS: INSULIN GLARGINE 100 UNIT/ML SUBCUT SCH (21:51)
[2018-01-09] MEDS: ALBUTEROL/IPRATROPIUM 3 ML NEB RESP TX SCH ×4 (00:45→19:50)
[2018-01-09] MEDS: methylPREDNISolone SOD SUC 40 MG/1 ML VIAL IV SCH ×2 (05:07→22:10)
[2018-01-09] MEDS: ZINC OXIDE PASTE 113 GM TUBE TOP SCH ×2 (07:35→22:17)
[2018-01-09] MEDS: INSULIN LISPRO 100 UNIT/ML SUBCUT SCH ×7 (08:45→22:01)
[2018-01-09] MEDS: ENOXAPARIN 40 MG/0.4 ML SYRINGE SUBCUT SCH (08:54)
[2018-01-09] MEDS: ASPIRIN EC 81 MG TABLET PO SCH (08:55)
[2018-01-09] MEDS: MAGNESIUM CHLORIDE 64 MG TABLET PO SCH ×2 (08:55→22:17)
[2018-01-09] MEDS: PREGABALIN 100 MG CAPSULE PO SCH ×2 (08:55→22:19)
[2018-01-09] MEDS: PANTOPRAZOLE 40 MG TABLET PO SCH (08:56)
[2018-01-09] MEDS: sitaGLIPtin 100 MG TABLET PO SCH (08:56)
[2018-01-09] MEDS: POTASSIUM CHLORIDE 20 MEQ TABLET PO SCH (08:56)
[2018-01-09] MEDS: LORATADINE 10 MG TABLET PO SCH (08:56)
[2018-01-09] MEDS: NYSTATIN 500,000 UNIT/5 ML UDCUP SWISH/SWAL SCH ×4 (08:57→22:14)
[2018-01-09] MEDS: PSEUDOEPHEDRINE 30 MG TABLET PO SCH ×2 (08:57→16:55)
[2018-01-09] MEDS: MULTIVITAMIN (BEROCCA) TABLET PO SCH (08:57)
[2018-01-09] MEDS ORDERED: SODIUM PHOSPHATE ENEMA 133 ML BOTTLE RECTAL ONE (09:00)
[2018-01-09] MEDS ORDERED: DORNASE ALFA 2.5 MG/2.5 ML VIAL RESP TX ONE ×2 (09:00→18:00)
[2018-01-09] MEDS: DOCUSATE SODIUM 100 MG CAPSULE PO PRN ×2 (09:05→22:17)
[2018-01-09] MEDS: LEVOFLOXACIN 750 MG TABLET PO SCH (09:05)
[2018-01-09] MEDS: BUDESONIDE 0.5 MG/2 ML NEB RESP TX SCH ×2 (09:23→14:55)
[2018-01-09] MEDS: INSULIN GLARGINE 100 UNIT/ML SUBCUT SCH (22:15)
[2018-01-09] MEDS: FOLIC ACID 0.4 MG TABLET PO SCH (22:17)
[2018-01-09] MEDS: CHOLECALCIFEROL 1,000 UNIT TABLET PO SCH (22:17)
[2018-01-09] MEDS: SIMVASTATIN 40 MG TABLET PO SCH (22:18)
[2018-01-09] MEDS: SERTRALINE 100 MG TABLET PO SCH (22:18)
[2018-01-09] MEDS: FERROUS SULFATE 325 MG TABLET PO SCH (22:18)
[2018-01-09] MEDS: ASCORBIC ACID 500 MG TABLET PO SCH (22:18)
[2018-01-09] MEDS: MULTIVITAMIN (CENTRUM) TABLET PO SCH (22:18)
[2018-01-09] MEDS: TAMSULOSIN 0.4 MG CAPSULE PO SCH (22:19)
[2018-01-10] MEDS: BUDESONIDE 0.5 MG/2 ML NEB RESP TX SCH ×2 (01:09→06:55)
[2018-01-10] MEDS: ALBUTEROL/IPRATROPIUM 3 ML NEB RESP TX SCH ×2 (01:09→06:55)
[2018-01-10 07:04] LABS: Eosinophils % 0.2 % (0.00-10.9); Hematocrit 29.5 VOL% (42.0-52.0); Hemoglobin 10.2 GM/DL (14.0-18.0); Immature Granulocytes % 4.1 %; Immature Granulocytes Absolute 0.22 #; Lymphocytes # 0.9 10*3/uL (1.4-4.0); Lymphocytes % 15.7 % (21.2-54.2); Mean Corpuscular HGB Conc 34.6 GM/DL (32-36); Mean Corpuscular Hemoglobin 31 PG (27-34); Mean Corpuscular Volume 90.2 FL (87-102); Mean Platelet Volume 9.3 FL (9.6-12.0); Monocytes # 0.3 10*3/uL (0.11-0.8); Monocytes % 4.8 % (1.7-12.7); NRBC # 0.02 10*3/uL; Neutrophils # 4.1 10*3/uL (1.4-7.4); Neutrophils % 75.2 % (38.7-73.9); Platelet Count 99 T/CUMM (130-400); Red Blood Count 3.27 MC/CUMM (3.8-5.5); Red Cell Distribution Width 20.7 % (9.3-17.3); White Blood Count 5.4 T/CUMM (4-12)
[2018-01-10 07:27] LABS: Giant Platelets Few; Hypochromasia 1+; Platelet Estimate Decreased
[2018-01-10 07:28] LABS: Microcytosis Slight
[2018-01-10 07:36] LABS: Calcium 8.7 MG/DL (8.5-10.1); Osmolality,Calculated 288.4 MOS/KG (273-304); Potassium 4.6 MMOL/L (3.5-5.1)
[2018-01-10] MEDS: PANTOPRAZOLE 40 MG TABLET PO SCH (08:24)
[2018-01-10] MEDS: DOCUSATE SODIUM 100 MG CAPSULE PO PRN (08:25)
[2018-01-10] MEDS: sitaGLIPtin 100 MG TABLET PO SCH (08:25)
[2018-01-10] MEDS: NYSTATIN 500,000 UNIT/5 ML UDCUP SWISH/SWAL SCH (08:25)
[2018-01-10] MEDS: POTASSIUM CHLORIDE 20 MEQ TABLET PO SCH (08:25)
[2018-01-10] MEDS: PSEUDOEPHEDRINE 30 MG TABLET PO SCH (08:25)
[2018-01-10] MEDS: ASPIRIN EC 81 MG TABLET PO SCH (08:25)
[2018-01-10] MEDS: PREGABALIN 100 MG CAPSULE PO SCH (08:25)
[2018-01-10] MEDS: MULTIVITAMIN (BEROCCA) TABLET PO SCH (08:25)
[2018-01-10] MEDS: LEVOFLOXACIN 750 MG TABLET PO SCH (08:25)
[2018-01-10] MEDS: MAGNESIUM CHLORIDE 64 MG TABLET PO SCH (08:25)
[2018-01-10] MEDS: LORATADINE 10 MG TABLET PO SCH (08:25)
[2018-01-10] MEDS: INSULIN LISPRO 100 UNIT/ML SUBCUT SCH ×4 (08:26→13:03)
[2018-01-10] MEDS: ZINC OXIDE PASTE 113 GM TUBE TOP SCH (08:26)
[2018-01-10] MEDS: ENOXAPARIN 40 MG/0.4 ML SYRINGE SUBCUT SCH (08:26)
[2018-01-10] MEDS: methylPREDNISolone SOD SUC 40 MG/1 ML VIAL IV SCH (08:27)
[2018-01-10] MEDS: MAGNESIUM HYDROXIDE SUSP 30 ML UDCUP PO PRN (08:30)
[2018-01-10 11:54] VITALS: BP 101/51
== END 2018-01-10 13:30 | disposition home health service (06) | DRG 194 ==
LOC: EDUNIT# → EDBD → N.ED 14:41 → N.EDINP 17:00 → N.2E 17:36
PROVIDERS: ADMIT Family Medicine; ATTEND Family Medicine

== ENCOUNTER 2018-03-02 11:36 | Observation (INO) ==
[2018-03-02] MEDS ORDERED: SODIUM CHLORIDE 0.9% 500 ML IV STA (11:51)
[2018-03-02] MEDS ORDERED: MORPHINE 4 MG/1 ML VIAL IV PRN (11:51)
[2018-03-02] MEDS ORDERED: ONDANSETRON 4 MG/2 ML VIAL IV PRN ×2 (11:51→15:32)
[2018-03-02] MEDS ORDERED: ASPIRIN 325 MG TABLET PO STA (11:51)
[2018-03-02] MEDS ORDERED: ENOXAPARIN 100 MG/ML SYRINGE SUBCUT STA (11:54)
[2018-03-02 13:15] LABS: Basophils # 0.1 10*3/uL (0.0-0.2); Eosinophils # 0.4 10*3/uL (0.0-0.87); Eosinophils % 8.3 % (0.00-10.9); Hematocrit 30.2 VOL% (42.0-52.0); Hemoglobin 10.5 GM/DL (14.0-18.0); Immature Granulocytes Absolute 0.05 #; Lymphocytes # 1.2 10*3/uL (1.4-4.0); Lymphocytes % 24.4 % (21.2-54.2); Mean Corpuscular HGB Conc 34.8 GM/DL (32-36); Mean Corpuscular Hemoglobin 32 PG (27-34); Mean Corpuscular Volume 92.4 FL (87-102); Mean Platelet Volume 9.7 FL (9.6-12.0); Monocytes # 0.3 10*3/uL (0.11-0.8); Monocytes % 5.5 % (1.7-12.7); Neutrophils # 3.1 10*3/uL (1.4-7.4); Neutrophils % 59.8 % (38.7-73.9); Platelet Count 106 T/CUMM (130-400); Red Blood Count 3.27 MC/CUMM (3.8-5.5); Red Cell Distribution Width 18.5 % (9.3-17.3); White Blood Count 5.1 T/CUMM (4-12)
[2018-03-02 13:31] LABS: INR 1.1; PT Patient Result 11.3 SECS; Partial Thromboplastin Time 28.5 SECS (0-40)
[2018-03-02 13:41] LABS: Albumin 3.6 G/DL (3.4-5.0); Bilirubin,Total 1.4 MG/DL (0.2-1.0); Calcium 8.7 MG/DL (8.5-10.1); Osmolality,Calculated 279.5 MOS/KG (273-304); Total Protein 6.6 G/DL (6.4-8.3)
[2018-03-02] MEDS ORDERED: GLUCAGON 1 MG VIAL IM PRN (15:32)
[2018-03-02] MEDS ORDERED: ACETAMINOPHEN 325 MG TABLET PO PRN (15:32)
[2018-03-02] MEDS ORDERED: DEXTROSE 50% 25 GM/50 ML VIAL IV PRN (15:32)
[2018-03-02] MEDS: INSULIN LISPRO 100 UNIT/ML SUBCUT SCH ×2 (16:57→22:04)
[2018-03-02] MEDS: SODIUM CHLORIDE 0.9% 1,000 ML IV SCH (16:57)
[2018-03-02] MEDS ORDERED: DOCUSATE SODIUM 100 MG CAPSULE PO PRN (19:54)
[2018-03-02] MEDS ORDERED: ALBUTEROL/IPRATROPIUM 3 ML NEB RESP TX PRN (19:54)
[2018-03-02] MEDS: FOLIC ACID 0.4 MG TABLET PO SCH (22:01)
[2018-03-02] MEDS: DOCUSATE SODIUM 100 MG CAPSULE PO SCH (22:01)
[2018-03-02] MEDS: PREGABALIN 100 MG CAPSULE PO SCH (22:01)
[2018-03-02] MEDS: MAGNESIUM CHLORIDE 64 MG TABLET PO SCH (22:02)
[2018-03-02] MEDS: CHOLECALCIFEROL 1,000 UNIT TABLET PO SCH (22:02)
[2018-03-02] MEDS: TAMSULOSIN 0.4 MG CAPSULE PO SCH (22:02)
[2018-03-02] MEDS: MULTIVITAMIN (CENTRUM) TABLET PO SCH (22:02)
[2018-03-02] MEDS: ASCORBIC ACID 500 MG TABLET PO SCH (22:02)
[2018-03-02] MEDS: FUROSEMIDE 20 MG TABLET PO SCH (22:02)
[2018-03-02] MEDS: SIMVASTATIN 40 MG TABLET PO SCH (22:02)
[2018-03-02] MEDS: FERROUS SULFATE 325 MG TABLET PO SCH (22:02)
[2018-03-02] MEDS: INSULIN GLARGINE 100 UNIT/ML SUBCUT SCH (22:03)
[2018-03-03 06:03] LABS: Basophils # 0.1 10*3/uL (0.0-0.2); Basophils % 1.1 % (0.0-0.8); Eosinophils # 0.5 10*3/uL (0.0-0.87); Hematocrit 28.5 VOL% (42.0-52.0); Immature Granulocytes % 0.6 %; Immature Granulocytes Absolute 0.03 #; Lymphocytes # 1.5 10*3/uL (1.4-4.0); Lymphocytes % 28.1 % (21.2-54.2); Mean Corpuscular HGB Conc 35.1 GM/DL (32-36); Mean Corpuscular Hemoglobin 32 PG (27-34); Mean Corpuscular Volume 90.2 FL (87-102); Mean Platelet Volume 10.1 FL (9.6-12.0); Monocytes # 0.3 10*3/uL (0.11-0.8); Monocytes % 6.2 % (1.7-12.7); Neutrophils # 2.9 10*3/uL (1.4-7.4); Platelet Count 104 T/CUMM (130-400); Red Blood Count 3.16 MC/CUMM (3.8-5.5); Red Cell Distribution Width 18.4 % (9.3-17.3); White Blood Count 5.3 T/CUMM (4-12)
[2018-03-03 06:25] LABS: Blood Urea Nitrogen 18 MG/DL (7-18); Calcium 8.5 MG/DL (8.5-10.1); Glucose 68 MG/DL (74-106)
[2018-03-03 06:26] LABS: Osmolality,Calculated 278.4 MOS/KG (273-304); Potassium 3.9 MMOL/L (3.5-5.1); Sodium 140 MMOL/L (136-145); Troponin I Only < 0.015 NG/ML (0.00-0.045)
[2018-03-03] MEDS: INSULIN LISPRO 100 UNIT/ML SUBCUT SCH ×4 (07:56→22:11)
[2018-03-03] MEDS: MAGNESIUM CHLORIDE 64 MG TABLET PO SCH ×2 (09:00→21:37)
[2018-03-03] MEDS ORDERED: PANTOPRAZOLE 40 MG TABLET PO SCH (09:00)
[2018-03-03] MEDS: PREGABALIN 100 MG CAPSULE PO SCH ×2 (09:00→21:37)
[2018-03-03] MEDS: sitaGLIPtin 100 MG TABLET PO SCH (09:00)
[2018-03-03] MEDS: MULTIVITAMIN (BEROCCA) TABLET PO SCH (09:00)
[2018-03-03] MEDS: POTASSIUM CHLORIDE 20 MEQ TABLET PO SCH (09:00)
[2018-03-03] MEDS: SERTRALINE 100 MG TABLET PO SCH (09:01)
[2018-03-03] MEDS: DOCUSATE SODIUM 100 MG CAPSULE PO SCH ×2 (09:01→21:37)
[2018-03-03] MEDS: PANTOPRAZOLE 40 MG TABLET PO SCH (09:01)
[2018-03-03] MEDS: ASPIRIN CHEW 81 MG TABLET PO SCH (09:01)
[2018-03-03] MEDS ORDERED: MAGNESIUM SULF RIDER 2 GM in PREMIX 1 EACH IV PRN (10:55)
[2018-03-03] MEDS ORDERED: POTASSIUM CHLORIDE RIDER 10 MEQ in PREMIX 1 EACH IV PRN (10:55)
[2018-03-03] MEDS: SODIUM CHLORIDE 0.9% 1,000 ML IV SCH (12:03)
[2018-03-03] MEDS: CHOLECALCIFEROL 1,000 UNIT TABLET PO SCH (21:37)
[2018-03-03] MEDS: MULTIVITAMIN (CENTRUM) TABLET PO SCH (21:37)
[2018-03-03] MEDS: FERROUS SULFATE 325 MG TABLET PO SCH (21:37)
[2018-03-03] MEDS: ASCORBIC ACID 500 MG TABLET PO SCH (21:37)
[2018-03-03] MEDS: FOLIC ACID 0.4 MG TABLET PO SCH (21:37)
[2018-03-03] MEDS: SIMVASTATIN 40 MG TABLET PO SCH (21:38)
[2018-03-03] MEDS: INSULIN GLARGINE 100 UNIT/ML SUBCUT SCH (21:40)
[2018-03-03] MEDS: FUROSEMIDE 20 MG TABLET PO SCH (22:15)
[2018-03-03] MEDS: TAMSULOSIN 0.4 MG CAPSULE PO SCH (22:15)
[2018-03-04] MEDS ORDERED: DIAZEPAM 5 MG TABLET PO ONE (06:00)
[2018-03-04] MEDS ORDERED: diphenhydrAMINE CAP 25 MG CAPSULE PO ONE (06:00)
[2018-03-04] MEDS: INSULIN LISPRO 100 UNIT/ML SUBCUT SCH ×4 (07:58→21:59)
[2018-03-04] MEDS: SODIUM CHLORIDE 0.9% 1,000 ML IV SCH (07:59)
[2018-03-04] MEDS: DOCUSATE SODIUM 100 MG CAPSULE PO SCH ×2 (09:16→21:53)
[2018-03-04] MEDS: MULTIVITAMIN (BEROCCA) TABLET PO SCH (09:16)
[2018-03-04] MEDS: sitaGLIPtin 100 MG TABLET PO SCH (09:16)
[2018-03-04] MEDS: POTASSIUM CHLORIDE 20 MEQ TABLET PO SCH (09:16)
[2018-03-04] MEDS: SERTRALINE 100 MG TABLET PO SCH (09:17)
[2018-03-04] MEDS: MAGNESIUM CHLORIDE 64 MG TABLET PO SCH ×2 (09:17→21:53)
[2018-03-04] MEDS: PANTOPRAZOLE 40 MG TABLET PO SCH (09:17)
[2018-03-04] MEDS: PREGABALIN 100 MG CAPSULE PO SCH ×2 (09:17→21:53)
[2018-03-04] MEDS ORDERED: SKIN HEALING OINT (AQUAPHOR) 50 GM TUBE TOP PRN (11:39)
[2018-03-04] MEDS: ASPIRIN CHEW 81 MG TABLET PO SCH (11:56)
[2018-03-04] MEDS ORDERED: VERAPAMIL 5 MG/2 ML VIAL ONE (12:05)
[2018-03-04] MEDS ORDERED: NITROGLYCERIN DRIP 50 MG/250 ML BOTTLE IV ONE (12:05)
[2018-03-04] MEDS ORDERED: MIDAZOLAM 2 MG/2 ML VIAL ONE (12:07)
[2018-03-04] MEDS ORDERED: fentaNYL 100 MCG/2 ML VIAL ONE (12:07)
[2018-03-04] MEDS ORDERED: ENOXAPARIN 60 MG/0.6 ML SYRINGE ONE (12:23)
[2018-03-04] MEDS ORDERED: GLUCAGON 1 MG VIAL IM PRN (12:47)
[2018-03-04] MEDS ORDERED: DEXTROSE 50% 25 GM/50 ML VIAL IV PRN (12:47)
[2018-03-04] MEDS: FERROUS SULFATE 325 MG TABLET PO SCH (21:53)
[2018-03-04] MEDS: FUROSEMIDE 20 MG TABLET PO SCH (21:53)
[2018-03-04] MEDS: FOLIC ACID 0.4 MG TABLET PO SCH (21:53)
[2018-03-04] MEDS: CHOLECALCIFEROL 1,000 UNIT TABLET PO SCH (21:53)
[2018-03-04] MEDS: ASCORBIC ACID 500 MG TABLET PO SCH (21:53)
[2018-03-04] MEDS: SIMVASTATIN 40 MG TABLET PO SCH (21:53)
[2018-03-04] MEDS: MULTIVITAMIN (CENTRUM) TABLET PO SCH (21:53)
[2018-03-04] MEDS: TAMSULOSIN 0.4 MG CAPSULE PO SCH (21:53)
[2018-03-04] MEDS: INSULIN GLARGINE 100 UNIT/ML SUBCUT SCH (21:54)
[2018-03-05] MEDS: SODIUM CHLORIDE 0.9% 1,000 ML IV SCH (04:40)
[2018-03-05] MEDS: INSULIN LISPRO 100 UNIT/ML SUBCUT SCH ×2 (07:51→12:35)
[2018-03-05] MEDS: ASPIRIN CHEW 81 MG TABLET PO SCH (08:32)
[2018-03-05] MEDS: PANTOPRAZOLE 40 MG TABLET PO SCH (08:32)
[2018-03-05] MEDS: MAGNESIUM CHLORIDE 64 MG TABLET PO SCH (08:32)
[2018-03-05] MEDS: MULTIVITAMIN (BEROCCA) TABLET PO SCH (08:32)
[2018-03-05] MEDS: POTASSIUM CHLORIDE 20 MEQ TABLET PO SCH (08:32)
[2018-03-05] MEDS: DOCUSATE SODIUM 100 MG CAPSULE PO SCH (08:32)
[2018-03-05] MEDS: SERTRALINE 100 MG TABLET PO SCH (08:32)
[2018-03-05] MEDS: PREGABALIN 100 MG CAPSULE PO SCH (08:32)
[2018-03-05] MEDS: sitaGLIPtin 100 MG TABLET PO SCH (08:32)
[2018-03-05 12:28] VITALS: BP 104/50
== END 2018-03-05 13:50 | disposition home or self-care (01) ==
LOC: EDBD → EDUNIT# → N.ED 11:36 → N.EDINP 11:36 → N.TELEN 14:38
PROVIDERS: ADMIT Family Medicine; ATTEND Family Medicine
PROC: CLCCHCL (ICD-10-PCS; 2018-03-04 17:15)

== ENCOUNTER 2018-12-22 19:02 | Inpatient (IN) ==
[2018-12-22] MEDS ORDERED: SODIUM CHLORIDE 0.9% 1,000 ML IV STA (20:11)
[2018-12-22 20:20] LABS: Basophils % 0.7 % (0.0-0.8); Eosinophils # 0.6 10*3/uL (0.0-0.87); Eosinophils % 11.2 % (0.00-10.9); Hematocrit 24.7 VOL% (42.0-52.0); Hemoglobin 8.1 GM/DL (14.0-18.0); Immature Granulocytes % 1.1 %; Immature Granulocytes Absolute 0.06 #; Lymphocytes # 1.1 10*3/uL (1.4-4.0); Lymphocytes % 19.4 % (21.2-54.2); Mean Corpuscular HGB Conc 32.8 GM/DL (32-36); Mean Corpuscular Hemoglobin 32 PG (27-34); Mean Corpuscular Volume 97.2 FL (87-102); Mean Platelet Volume 9.7 FL (9.6-12.0); Monocytes # 0.3 10*3/uL (0.11-0.8); Monocytes % 5.3 % (1.7-12.7); Neutrophils # 3.4 10*3/uL (1.4-7.4); Neutrophils % 62.3 % (38.7-73.9); Platelet Count 122 T/CUMM (130-400); Red Blood Count 2.54 MC/CUMM (3.8-5.5); Red Cell Distribution Width 20.1 % (9.3-17.3); White Blood Count 5.5 T/CUMM (4-12)
[2018-12-22 20:32] LABS: Albumin 3.7 G/DL (3.4-5.0); Bilirubin,Total 0.9 MG/DL (0.2-1.0); Calcium 8.4 MG/DL (8.5-10.1); Osmolality,Calculated 271.1 MOS/KG (273-304); Potassium 4.4 MMOL/L (3.5-5.1); Total Protein 7.2 G/DL (6.4-8.3)
[2018-12-22 20:51] LABS: Anisocytosis 1+; Eosinophils 11 % (0-10); Hypochromasia Slight; Lymphocytes 24 % (20-55); Platelet Estimate Adequate; Segmented Neutrophils 60 % (50-85); Total Cells Counted 100
[2018-12-22 21:28] LABS: PT Patient Result 11.1 SECS
[2018-12-22 21:34] LABS: Apearance,Urine CLEAR (Clear); Bilirubin,Urine Negative (Negative); Blood, Urine Negative (Negative); Glucose,Urine (UA) Negative (Negative); Ketones,Urine Negative (Negative); Nitrite,Urine Negative (Negative); Protein,Urine Negative; RBC,Urine 2 /HPF (0-4); Urine Color Straw (Yellow); Urine Specific Gravity 1.012 (1.001-1.035); Urine Urobilinogen < 2.0 EU/DL (0.2-1.0); WBC,Urine 2 /HPF (0-6)
[2018-12-22] MEDS ORDERED: ACETAMINOPHEN 325 MG TABLET PO PRN (22:07)
[2018-12-22] MEDS ORDERED: ONDANSETRON 4 MG/2 ML VIAL IV PRN (22:07)
[2018-12-22] MEDS: ENOXAPARIN 100 MG/ML SYRINGE SUBCUT SCH (23:40)
[2018-12-22] MEDS: SODIUM CHLORIDE 0.9% 1,000 ML IV SCH (23:45)
[2018-12-23] MEDS: ALBUTEROL/IPRATROPIUM 3 ML NEB RESP TX SCH ×5 (02:14→19:13)
[2018-12-23 04:28] LABS: Basophils % 0.7 % (0.0-0.8); Eosinophils # 0.4 10*3/uL (0.0-0.87); Eosinophils % 8.1 % (0.00-10.9); Hematocrit 22.9 VOL% (42.0-52.0); Hemoglobin 7.4 GM/DL (14.0-18.0); Immature Granulocytes % 1.2 %; Immature Granulocytes Absolute 0.05 #; Lymphocytes # 0.7 10*3/uL (1.4-4.0); Lymphocytes % 15.9 % (21.2-54.2); Mean Corpuscular HGB Conc 32.3 GM/DL (32-36); Mean Corpuscular Hemoglobin 32 PG (27-34); Mean Corpuscular Volume 97.9 FL (87-102); Mean Platelet Volume 10.7 FL (9.6-12.0); Monocytes # 0.2 10*3/uL (0.11-0.8); Monocytes % 5.1 % (1.7-12.7); Platelet Count 112 T/CUMM (130-400); Red Blood Count 2.34 MC/CUMM (3.8-5.5); Red Cell Distribution Width 20.3 % (9.3-17.3); White Blood Count 4.3 T/CUMM (4-12)
[2018-12-23 04:35] LABS: Albumin 3.4 G/DL (3.4-5.0); Bilirubin,Total 1.2 MG/DL (0.2-1.0); Calcium 8.3 MG/DL (8.5-10.1); Potassium 4.5 MMOL/L (3.5-5.1); Total Protein 6.5 G/DL (6.4-8.3)
[2018-12-23 07:25] LABS: Eosinophils # 0.5 10*3/uL (0.0-0.87); Eosinophils % 12.1 % (0.00-10.9); Hematocrit 24.8 VOL% (42.0-52.0); Hemoglobin 7.9 GM/DL (14.0-18.0); Immature Granulocytes % 1.9 %; Immature Granulocytes Absolute 0.08 #; Lymphocytes # 0.8 10*3/uL (1.4-4.0); Lymphocytes % 19.3 % (21.2-54.2); Mean Corpuscular HGB Conc 31.9 GM/DL (32-36); Mean Corpuscular Hemoglobin 31 PG (27-34); Mean Platelet Volume 9.5 FL (9.6-12.0); Monocytes # 0.2 10*3/uL (0.11-0.8); Monocytes % 5.8 % (1.7-12.7); Neutrophils # 2.5 10*3/uL (1.4-7.4); Neutrophils % 59.9 % (38.7-73.9); Platelet Count 107 T/CUMM (130-400); Red Blood Count 2.53 MC/CUMM (3.8-5.5); Red Cell Distribution Width 20.3 % (9.3-17.3); White Blood Count 4.1 T/CUMM (4-12)
[2018-12-23 07:48] LABS: Eosinophils 10 % (0-10); Hypochromasia 1+; Lymphocytes 13 % (20-55); Ovalocytes Slight; Platelet Estimate Decreased; Segmented Neutrophils 72 % (50-85); Total Cells Counted 100
[2018-12-23 08:24] LABS: Folate 23.6 NG/ML (5.4-24.0); Vitamin B12 654 PG/ML (211-911)
[2018-12-23] MEDS ORDERED: FUROSEMIDE 40 MG/4 ML VIAL IV ONE (08:27)
[2018-12-23] MEDS ORDERED: SODIUM CHLORIDE 0.9% 1,000 ML IV PRN (08:27)
[2018-12-23 08:31] LABS: Sedimentation Rate-Westergren 51 MM/HR (0-20)
[2018-12-23] MEDS: ASPIRIN CHEW 81 MG TABLET PO SCH (09:55)
[2018-12-23] MEDS: sitaGLIPtin 100 MG TABLET PO SCH (09:56)
[2018-12-23] MEDS: POTASSIUM CHLORIDE 20 MEQ TABLET PO SCH (09:56)
[2018-12-23] MEDS: DOCUSATE SODIUM 100 MG CAPSULE PO SCH ×2 (09:56→21:06)
[2018-12-23] MEDS: PREGABALIN 100 MG CAPSULE PO SCH ×2 (09:57→21:07)
[2018-12-23] MEDS: PANTOPRAZOLE 40 MG TABLET PO SCH (09:57)
[2018-12-23] MEDS: SERTRALINE 100 MG TABLET PO SCH (09:58)
[2018-12-23] MEDS: MAGNESIUM CHLORIDE 64 MG TABLET PO SCH ×2 (09:58→21:07)
[2018-12-23] MEDS: FUROSEMIDE 40 MG/4 ML VIAL IV SCH (10:03)
[2018-12-23] MEDS: methylPREDNISolone SOD SUC 40 MG/1 ML VIAL IV SCH ×2 (11:03→21:08)
[2018-12-23] MEDS: cefTRIAXone 1,000 MG in SYRINGE 1 EACH IV SCH (11:05)
[2018-12-23] MEDS: AZITHROMYCIN INJ 500 MG in SODIUM CHLORIDE 0.9% 250 ML IV SCH (11:45)
[2018-12-23] MEDS: ENOXAPARIN 100 MG/ML SYRINGE SUBCUT SCH (11:55)
[2018-12-23] MEDS ORDERED: ceFAZolin 2,000 MG in PREMIX 1 EACH IV ONE (12:16)
[2018-12-23] MEDS: SODIUM CHLORIDE 0.9% 1,000 ML IV SCH (13:06)
[2018-12-23] MEDS ORDERED: BACITRACIN OINT 0.9 GM PACK TOP ONE (13:27)
[2018-12-23] MEDS ORDERED: ALBUTEROL/IPRATROPIUM 3 ML NEB RESP TX ONE ×2 (16:23→16:51)
[2018-12-23] MEDS ORDERED: MORPHINE 4 MG/1 ML VIAL IV PRN ×2 (16:24)
[2018-12-23] MEDS ORDERED: MAGNESIUM HYDROXIDE SUSP 30 ML UDCUP PO PRN (16:24)
[2018-12-23] MEDS ORDERED: FUROSEMIDE 20 MG/2 ML VIAL ONE (16:32)
[2018-12-23] MEDS ORDERED: ONDANSETRON 4 MG/2 ML VIAL ONE (16:32)
[2018-12-23] MEDS ORDERED: PROPOFOL 200 MG/20 ML VIAL IV ONE (16:32)
[2018-12-23] MEDS ORDERED: fentaNYL 100 MCG/2 ML VIAL ONE (16:32)
[2018-12-23] MEDS ORDERED: ROCURONIUM 100 MG/10 ML VIAL IV ONE (16:33)
[2018-12-23] MEDS ORDERED: ETOMIDATE 40 MG/20 ML VIAL IV ONE (16:33)
[2018-12-23] MEDS ORDERED: PHENYLEPHRINE 1 MG/10 ML SYRINGE IV ONE (16:33)
[2018-12-23] MEDS ORDERED: NEOSTIGMINE 10 MG/10 ML VIAL ONE (16:33)
[2018-12-23] MEDS ORDERED: HYDROCORTISONE 100 MG VIAL ONE (16:33)
[2018-12-23] MEDS ORDERED: GLYCOPYRROLATE 0.4 MG/2 ML VIAL ONE (16:33)
[2018-12-23] MEDS ORDERED: SODIUM CHLORIDE 0.9% 1,000 ML IV ONE (16:34)
[2018-12-23] MEDS ORDERED: ONDANSETRON 4 MG/2 ML VIAL IV PRN (16:47)
[2018-12-23] MEDS ORDERED: MEPERIDINE 25 MG/1 ML VIAL IV PRN (16:47)
[2018-12-23] MEDS ORDERED: FUROSEMIDE 20 MG/2 ML VIAL IV ONE (18:05)
[2018-12-23] MEDS: ZINC OXIDE PASTE 113 GM TUBE TOP SCH ×2 (18:12→21:06)
[2018-12-23 18:24] LABS: ABG Base Excess -1.7 MMOL/L (-2.5-2.5); ABG Oxygen Saturation 96.7 % (95-100); ABG PCO2 44.9 MM HG (35-48); ABG PH 7.339 (7.35-7.45); ABG TCO2 22.4 MMOL/L (23-27); Allen Test Positive; Pt O2 Delivery Device Simple Mask
[2018-12-23 20:34] LABS: Hematocrit 26.3 VOL% (42.0-52.0); Hemoglobin 8.3 GM/DL (14.0-18.0)
[2018-12-23] MEDS ORDERED: GLUCAGON 1 MG VIAL IM PRN (20:44)
[2018-12-23] MEDS ORDERED: DEXTROSE 50% 25 GM/50 ML SYRINGE IV PRN (20:44)
[2018-12-23] MEDS ORDERED: INSULIN GLARGINE 100 UNIT/ML SUBCUT SCH (21:00)
[2018-12-23] MEDS: TAMSULOSIN 0.4 MG CAPSULE PO SCH (21:06)
[2018-12-23] MEDS: FERROUS SULFATE 325 MG TABLET PO SCH (21:06)
[2018-12-23] MEDS: FUROSEMIDE 40 MG TABLET PO SCH (21:07)
[2018-12-23] MEDS: CHOLECALCIFEROL 1,000 UNIT TABLET PO SCH (21:08)
[2018-12-23] MEDS: ASCORBIC ACID 500 MG TABLET PO SCH (21:08)
[2018-12-23] MEDS: SIMVASTATIN 40 MG TABLET PO SCH (21:08)
[2018-12-23] MEDS: INSULIN LISPRO 100 UNIT/ML SUBCUT SCH (21:12)
[2018-12-23] MEDS: FOLIC ACID 0.4 MG TABLET PO SCH (23:01)
[2018-12-24] MEDS: ALBUTEROL/IPRATROPIUM 3 ML NEB RESP TX SCH ×7 (00:14→23:55)
[2018-12-24] MEDS: INSULIN LISPRO 100 UNIT/ML SUBCUT SCH ×6 (00:54→21:01)
[2018-12-24 04:08] LABS: Basophils % 0.2 % (0.0-0.8); Eosinophils % 0.4 % (0.00-10.9); Hematocrit 24.9 VOL% (42.0-52.0); Hemoglobin 7.8 GM/DL (14.0-18.0); Immature Granulocytes % 2.7 %; Immature Granulocytes Absolute 0.14 #; Lymphocytes # 0.3 10*3/uL (1.4-4.0); Lymphocytes % 6.2 % (21.2-54.2); Mean Corpuscular HGB Conc 31.3 GM/DL (32-36); Mean Corpuscular Hemoglobin 31 PG (27-34); Monocytes # 0.1 10*3/uL (0.11-0.8); Monocytes % 2.1 % (1.7-12.7); NRBC # 0.02 10*3/uL; Neutrophils # 4.6 10*3/uL (1.4-7.4); Neutrophils % 88.4 % (38.7-73.9); Platelet Count 115 T/CUMM (130-400); Red Blood Count 2.54 MC/CUMM (3.8-5.5); Red Cell Distribution Width 20.7 % (9.3-17.3); White Blood Count 5.2 T/CUMM (4-12)
[2018-12-24 04:27] LABS: Potassium 4.8 MMOL/L (3.5-5.1)
[2018-12-24] MEDS ORDERED: SODIUM CHLORIDE 0.9% 1,000 ML IV PRN (07:17)
[2018-12-24] MEDS ORDERED: FUROSEMIDE 40 MG/4 ML VIAL IV PRN (07:17)
[2018-12-24] MEDS: methylPREDNISolone SOD SUC 40 MG/1 ML VIAL IV SCH ×2 (09:29→21:02)
[2018-12-24] MEDS: FUROSEMIDE 40 MG/4 ML VIAL IV SCH (09:30)
[2018-12-24] MEDS: PANTOPRAZOLE 40 MG TABLET PO SCH (09:31)
[2018-12-24] MEDS: sitaGLIPtin 100 MG TABLET PO SCH (09:31)
[2018-12-24] MEDS: DOCUSATE SODIUM 100 MG CAPSULE PO SCH ×2 (09:32→21:02)
[2018-12-24] MEDS: ZINC OXIDE PASTE 113 GM TUBE TOP SCH ×2 (09:32→21:02)
[2018-12-24] MEDS: MAGNESIUM CHLORIDE 64 MG TABLET PO SCH ×2 (09:32→21:02)
[2018-12-24] MEDS: POTASSIUM CHLORIDE 20 MEQ TABLET PO SCH (09:32)
[2018-12-24] MEDS: ASPIRIN CHEW 81 MG TABLET PO SCH (09:32)
[2018-12-24] MEDS: PREGABALIN 100 MG CAPSULE PO SCH ×2 (09:32→21:02)
[2018-12-24] MEDS: SERTRALINE 100 MG TABLET PO SCH (09:33)
[2018-12-24 09:45] LABS: Hemoglobin A1 (Alkaline) 97.5 % (96.5-98.5); Hemoglobin A2 (Alkaline) 2.5 % (1.5-3.5)
[2018-12-24] MEDS: cefTRIAXone 1,000 MG in SYRINGE 1 EACH IV SCH (09:48)
[2018-12-24] MEDS: FONDAPARINUX 2.5 MG/0.5 ML SYRINGE SUBCUT SCH (10:18)
[2018-12-24] MEDS: AZITHROMYCIN INJ 500 MG in SODIUM CHLORIDE 0.9% 250 ML IV SCH (10:52)
[2018-12-24 16:31] LABS: Hematocrit 30.8 VOL% (42.0-52.0)
[2018-12-24 16:34] LABS: Hemoglobin 10.1 GM/DL (14.0-18.0)
[2018-12-24] MEDS: SODIUM CHLORIDE 0.9% 1,000 ML IV SCH (19:10)
[2018-12-24] MEDS ORDERED: INSULIN GLARGINE 100 UNIT/ML SUBCUT SCH (21:00)
[2018-12-24] MEDS: TAMSULOSIN 0.4 MG CAPSULE PO SCH (21:02)
[2018-12-24] MEDS: FOLIC ACID 0.4 MG TABLET PO SCH (21:02)
[2018-12-24] MEDS: SIMVASTATIN 40 MG TABLET PO SCH (21:02)
[2018-12-24] MEDS: CHOLECALCIFEROL 1,000 UNIT TABLET PO SCH (21:02)
[2018-12-24] MEDS: FERROUS SULFATE 325 MG TABLET PO SCH (21:02)
[2018-12-24] MEDS: FUROSEMIDE 40 MG TABLET PO SCH (21:02)
[2018-12-24] MEDS: ASCORBIC ACID 500 MG TABLET PO SCH (21:02)
[2018-12-25] MEDS: INSULIN LISPRO 100 UNIT/ML SUBCUT SCH ×6 (00:54→19:55)
[2018-12-25 03:38] LABS: Basophils % 0.2 % (0.0-0.8); Hematocrit 29.1 VOL% (42.0-52.0); Hemoglobin 9.6 GM/DL (14.0-18.0); Immature Granulocytes % 2.5 %; Immature Granulocytes Absolute 0.13 #; Lymphocytes # 0.5 10*3/uL (1.4-4.0); Lymphocytes % 9.3 % (21.2-54.2); Mean Corpuscular Hemoglobin 31 PG (27-34); Mean Corpuscular Volume 92.7 FL (87-102); Mean Platelet Volume 9.8 FL (9.6-12.0); Monocytes # 0.2 10*3/uL (0.11-0.8); Neutrophils # 4.5 10*3/uL (1.4-7.4); Platelet Count 109 T/CUMM (130-400); Red Blood Count 3.14 MC/CUMM (3.8-5.5); Red Cell Distribution Width 19.2 % (9.3-17.3); White Blood Count 5.3 T/CUMM (4-12)
[2018-12-25] MEDS: ALBUTEROL/IPRATROPIUM 3 ML NEB RESP TX SCH ×5 (03:40→19:45)
[2018-12-25] MEDS ORDERED: INSULIN REGULAR 100 UNIT/ML SUBCUT ONE (08:20)
[2018-12-25] MEDS: SERTRALINE 100 MG TABLET PO SCH (09:08)
[2018-12-25] MEDS: PANTOPRAZOLE 40 MG TABLET PO SCH (09:08)
[2018-12-25] MEDS: FONDAPARINUX 2.5 MG/0.5 ML SYRINGE SUBCUT SCH (09:08)
[2018-12-25] MEDS: sitaGLIPtin 100 MG TABLET PO SCH (09:08)
[2018-12-25] MEDS: POTASSIUM CHLORIDE 20 MEQ TABLET PO SCH (09:08)
[2018-12-25] MEDS: PREGABALIN 100 MG CAPSULE PO SCH ×2 (09:08→21:11)
[2018-12-25] MEDS: MAGNESIUM CHLORIDE 64 MG TABLET PO SCH ×2 (09:08→21:13)
[2018-12-25] MEDS: DOCUSATE SODIUM 100 MG CAPSULE PO SCH ×2 (09:08→21:13)
[2018-12-25] MEDS: ASPIRIN CHEW 81 MG TABLET PO SCH (09:08)
[2018-12-25] MEDS: methylPREDNISolone SOD SUC 40 MG/1 ML VIAL IV SCH ×2 (09:09→21:22)
[2018-12-25] MEDS: FUROSEMIDE 40 MG TABLET PO SCH ×2 (09:09→21:12)
[2018-12-25] MEDS: cefTRIAXone 1,000 MG in SYRINGE 1 EACH IV SCH (09:12)
[2018-12-25] MEDS: ZINC OXIDE PASTE 113 GM TUBE TOP SCH ×2 (09:13→21:00)
[2018-12-25] MEDS ORDERED: INSULIN GLARGINE 100 UNIT/ML SUBCUT SCH (21:00)
[2018-12-25] MEDS ORDERED: FOLIC ACID 0.4 MG TABLET PO SCH (21:00)
[2018-12-25] MEDS: CHOLECALCIFEROL 1,000 UNIT TABLET PO SCH (21:11)
[2018-12-25] MEDS: SIMVASTATIN 40 MG TABLET PO SCH (21:13)
[2018-12-25] MEDS: TAMSULOSIN 0.4 MG CAPSULE PO SCH (21:13)
[2018-12-25] MEDS: ASCORBIC ACID 500 MG TABLET PO SCH (21:13)
[2018-12-25] MEDS: FERROUS SULFATE 325 MG TABLET PO SCH (21:13)
[2018-12-26] MEDS: ALBUTEROL/IPRATROPIUM 3 ML NEB RESP TX SCH ×4 (00:20→10:00)
[2018-12-26] MEDS: INSULIN LISPRO 100 UNIT/ML SUBCUT SCH ×4 (00:31→12:12)
[2018-12-26 05:36] LABS: Basophils % 0.2 % (0.0-0.8); Hematocrit 30.1 VOL% (42.0-52.0); Hemoglobin 10.2 GM/DL (14.0-18.0); Lymphocytes # 0.6 10*3/uL (1.4-4.0); Lymphocytes % 12.3 % (21.2-54.2); Mean Corpuscular HGB Conc 33.9 GM/DL (32-36); Mean Corpuscular Hemoglobin 31 PG (27-34); Mean Corpuscular Volume 92.6 FL (87-102); Mean Platelet Volume 9.8 FL (9.6-12.0); Monocytes # 0.2 10*3/uL (0.11-0.8); Monocytes % 3.5 % (1.7-12.7); Neutrophils # 4.2 10*3/uL (1.4-7.4); Platelet Count 113 T/CUMM (130-400); Red Blood Count 3.25 MC/CUMM (3.8-5.5); Red Cell Distribution Width 18.6 % (9.3-17.3); White Blood Count 5.1 T/CUMM (4-12)
[2018-12-26] MEDS: ASPIRIN CHEW 81 MG TABLET PO SCH (09:34)
[2018-12-26] MEDS: DOCUSATE SODIUM 100 MG CAPSULE PO SCH (09:34)
[2018-12-26] MEDS: MAGNESIUM CHLORIDE 64 MG TABLET PO SCH (09:34)
[2018-12-26] MEDS: FUROSEMIDE 40 MG TABLET PO SCH (09:35)
[2018-12-26] MEDS: sitaGLIPtin 100 MG TABLET PO SCH (09:35)
[2018-12-26] MEDS: POTASSIUM CHLORIDE 20 MEQ TABLET PO SCH (09:35)
[2018-12-26] MEDS: PANTOPRAZOLE 40 MG TABLET PO SCH (09:36)
[2018-12-26] MEDS: SERTRALINE 100 MG TABLET PO SCH (09:36)
[2018-12-26] MEDS: FONDAPARINUX 2.5 MG/0.5 ML SYRINGE SUBCUT SCH (09:36)
[2018-12-26] MEDS: PREGABALIN 100 MG CAPSULE PO SCH (09:36)
[2018-12-26] MEDS: methylPREDNISolone SOD SUC 40 MG/1 ML VIAL IV SCH (09:36)
[2018-12-26] MEDS: cefTRIAXone 1,000 MG in SYRINGE 1 EACH IV SCH (09:43)
[2018-12-26] MEDS ORDERED: BISACODYL 10 MG SUPP RECTAL ONE (10:00)
[2018-12-26 10:32] LABS: Calcium 8.7 MG/DL (8.5-10.1); Osmolality,Calculated 286.1 MOS/KG (273-304); Potassium 4.4 MMOL/L (3.5-5.1)
[2018-12-26 11:38] VITALS: BP 117/45
[2018-12-26] MEDS ORDERED: INSULIN LISPRO 100 UNIT/ML SUBCUT SCH (12:00)
[2018-12-26] MEDS: ZINC OXIDE PASTE 113 GM TUBE TOP SCH (12:35)
== END 2018-12-26 13:47 | disposition swing bed (61) | DRG 480 ==
LOC: EDBD 19:02 → N.EDINP 19:02 → N.ED 19:02 → EDUNIT# 19:02 → N.CC 23:04 → N.3E 12-25 18:27
PROVIDERS: ADMIT Family Medicine; ATTEND Family Medicine

== ENCOUNTER 2019-04-29 14:18 | Inpatient (IN) ==
[2019-04-29] MEDS ORDERED: methylPREDNISolone SOD SUC 125 MG/2 ML VIAL IV STA (14:42)
[2019-04-29] MEDS ORDERED: ALBUTEROL/IPRATROPIUM 3 ML NEB RESP TX STA (14:42)
[2019-04-29 14:47] LABS: Basophils # 0.1 10*3/uL (0.0-0.2); Basophils % 0.8 % (0.0-0.8); Eosinophils # 1.2 10*3/uL (0.0-0.87); Eosinophils % 18.5 % (0.00-10.9); Immature Granulocytes % 0.6 %; Immature Granulocytes Absolute 0.04 #; Lymphocytes % 14.8 % (21.2-54.2); Mean Corpuscular HGB Conc 33.3 GM/DL (32-36); Mean Corpuscular Volume 94.8 FL (87-102); Mean Platelet Volume 9.9 FL (9.6-12.0); Monocytes % 4.5 % (1.7-12.7); Neutrophils % 60.8 % (38.7-73.9); Platelet Count 118 T/CUMM (130-400); Red Blood Count 3.48 MC/CUMM (3.8-5.5); Red Cell Distribution Width 18.1 % (9.3-17.3); White Blood Count 6.4 T/CUMM (4-12)
[2019-04-29 15:01] LABS: Albumin 3.4 G/DL (3.4-5.0); Calcium 8.4 MG/DL (8.5-10.1); Osmolality,Calculated 281.8 MOS/KG (273-304); Total Protein 7.2 G/DL (6.4-8.3)
[2019-04-29] MEDS ORDERED: LEVOFLOXACIN INJ 100 ML IV ONE (15:15)
[2019-04-29] MEDS ORDERED: LEVOFLOXACIN INJ 500 MG in PREMIX 1 EACH IV STA (15:17)
[2019-04-29 15:35] LABS: Eosinophils 21 % (0-10); Lymphocytes 17 % (20-55); Segmented Neutrophils 57 % (50-85); Total Cells Counted 100
[2019-04-29 15:36] LABS: Anisocytosis 1+; Macrocytosis 1+; Microcytosis Slight; Platelet Estimate Normal; Polychromasia Slight
[2019-04-29] MEDS ORDERED: DEXTROSE 50% 25 GM/50 ML VIAL IV PRN (15:44)
[2019-04-29] MEDS ORDERED: ACETAMINOPHEN 325 MG TABLET PO PRN (15:44)
[2019-04-29] MEDS ORDERED: ONDANSETRON 4 MG/2 ML VIAL IV PRN (15:44)
[2019-04-29] MEDS ORDERED: GLUCAGON 1 MG VIAL IM PRN (15:44)
[2019-04-29] MEDS: INSULIN REGULAR 100 UNIT/ML SUBCUT SCH ×3 (16:29→22:09)
[2019-04-29] MEDS ORDERED: MAGNESIUM CHLORIDE 64 MG TABLET PO ONE (18:48)
[2019-04-29] MEDS: ALBUTEROL/IPRATROPIUM 3 ML NEB RESP TX SCH (18:57)
[2019-04-29] MEDS ORDERED: CETIRIZINE 10 MG TABLET PO PRN (21:19)
[2019-04-29] MEDS: PREGABALIN 100 MG CAPSULE PO SCH (22:07)
[2019-04-29] MEDS: guaiFENesin 200 MG/10 ML UDCUP PO PRN (22:07)
[2019-04-29] MEDS: DOCUSATE SODIUM 100 MG CAPSULE PO SCH (22:07)
[2019-04-29] MEDS: INSULIN GLARGINE 100 UNIT/ML SUBCUT SCH (22:07)
[2019-04-29] MEDS: TAMSULOSIN 0.4 MG CAPSULE PO SCH (22:07)
[2019-04-30] MEDS: ALBUTEROL/IPRATROPIUM 3 ML NEB RESP TX SCH ×7 (00:10→19:51)
[2019-04-30] MEDS ORDERED: CETIRIZINE 10 MG TABLET PO SCH (08:00)
[2019-04-30] MEDS ORDERED: hydrOXYzine HCL 10 MG TABLET PO PRN (08:33)
[2019-04-30] MEDS: ARIPiprazole 2 MG TABLET PO SCH (08:48)
[2019-04-30] MEDS: FUROSEMIDE 20 MG TABLET PO SCH (08:48)
[2019-04-30] MEDS: INSULIN REGULAR 100 UNIT/ML SUBCUT SCH ×4 (08:48→21:58)
[2019-04-30] MEDS: ASPIRIN EC 81 MG TABLET PO SCH (08:48)
[2019-04-30] MEDS: CHOLECALCIFEROL 1,000 UNIT TABLET PO SCH (08:48)
[2019-04-30] MEDS: PREGABALIN 100 MG CAPSULE PO SCH ×2 (08:48→21:57)
[2019-04-30] MEDS: FOLIC ACID 0.4 MG TABLET PO SCH (08:48)
[2019-04-30] MEDS: SERTRALINE 100 MG TABLET PO SCH (08:49)
[2019-04-30] MEDS: FERROUS SULFATE 325 MG TABLET PO SCH (08:49)
[2019-04-30] MEDS: PANTOPRAZOLE 40 MG TABLET PO SCH (08:49)
[2019-04-30] MEDS: POTASSIUM CHLORIDE 20 MEQ TABLET PO SCH (08:49)
[2019-04-30] MEDS: MAGNESIUM CHLORIDE 64 MG TABLET PO SCH ×2 (08:49→22:08)
[2019-04-30] MEDS: CETIRIZINE 10 MG TABLET PO SCH (08:49)
[2019-04-30] MEDS: DOCUSATE SODIUM 100 MG CAPSULE PO SCH ×2 (08:49→21:57)
[2019-04-30] MEDS: ASCORBIC ACID 500 MG TABLET PO SCH (08:49)
[2019-04-30] MEDS: methylPREDNISolone SOD SUC 40 MG/1 ML VIAL IV SCH ×2 (12:06→21:59)
[2019-04-30] MEDS ORDERED: HYDROCORTISONE 1% CREAM 28 GM TUBE TOP PRN (15:18)
[2019-04-30] MEDS: FUROSEMIDE 40 MG TABLET PO SCH (17:14)
[2019-04-30] MEDS: TAMSULOSIN 0.4 MG CAPSULE PO SCH (21:57)
[2019-04-30] MEDS: INSULIN GLARGINE 100 UNIT/ML SUBCUT SCH (21:59)
[2019-05-01] MEDS: ALBUTEROL/IPRATROPIUM 3 ML NEB RESP TX SCH ×4 (01:00→20:10)
[2019-05-01 05:03] LABS: Basophils % 0.2 % (0.0-0.8); Eosinophils % 0.4 % (0.00-10.9); Hematocrit 31.6 VOL% (42.0-52.0); Hemoglobin 10.6 GM/DL (14.0-18.0); Immature Granulocytes % 1.2 %; Lymphocytes # 0.7 10*3/uL (1.4-4.0); Lymphocytes % 9.2 % (21.2-54.2); Mean Corpuscular HGB Conc 33.5 GM/DL (32-36); Mean Corpuscular Volume 95.8 FL (87-102); Mean Platelet Volume 10.2 FL (9.6-12.0); Monocytes % 2.6 % (1.7-12.7); NRBC # 0.02 10*3/uL; Neutrophils % 86.4 % (38.7-73.9); Platelet Count 128 T/CUMM (130-400)
[2019-05-01 05:31] LABS: Albumin 3.4 G/DL (3.4-5.0); Bilirubin,Total 0.8 MG/DL (0.2-1.0); Calcium 9.3 MG/DL (8.5-10.1); Osmolality,Calculated 287.7 MOS/KG (273-304); Total Protein 7.2 G/DL (6.4-8.3)
[2019-05-01] MEDS: INSULIN REGULAR 100 UNIT/ML SUBCUT SCH ×4 (08:56→22:08)
[2019-05-01] MEDS: CETIRIZINE 10 MG TABLET PO SCH (08:56)
[2019-05-01] MEDS: FUROSEMIDE 20 MG TABLET PO SCH (08:56)
[2019-05-01] MEDS: ASPIRIN EC 81 MG TABLET PO SCH (08:57)
[2019-05-01] MEDS: FOLIC ACID 0.4 MG TABLET PO SCH (08:57)
[2019-05-01] MEDS: ARIPiprazole 2 MG TABLET PO SCH (08:57)
[2019-05-01] MEDS: CHOLECALCIFEROL 1,000 UNIT TABLET PO SCH (08:57)
[2019-05-01] MEDS: MAGNESIUM CHLORIDE 64 MG TABLET PO SCH ×2 (08:57→22:07)
[2019-05-01] MEDS: ASCORBIC ACID 500 MG TABLET PO SCH (08:57)
[2019-05-01] MEDS: methylPREDNISolone SOD SUC 40 MG/1 ML VIAL IV SCH ×2 (08:58→22:08)
[2019-05-01] MEDS: DOCUSATE SODIUM 100 MG CAPSULE PO SCH ×2 (08:58→22:07)
[2019-05-01] MEDS: POTASSIUM CHLORIDE 20 MEQ TABLET PO SCH (08:58)
[2019-05-01] MEDS: PANTOPRAZOLE 40 MG TABLET PO SCH (08:58)
[2019-05-01] MEDS: PREGABALIN 100 MG CAPSULE PO SCH ×2 (08:58→22:07)
[2019-05-01] MEDS: FERROUS SULFATE 325 MG TABLET PO SCH (08:58)
[2019-05-01] MEDS: SERTRALINE 100 MG TABLET PO SCH (08:58)
[2019-05-01] MEDS: INSULIN LISPRO 100 UNIT/ML SUBCUT SCH ×2 (13:23→16:01)
[2019-05-01] MEDS ORDERED: MAGNESIUM SULF RIDER 2 GM in PREMIX 1 EACH IV ONE (13:30)
[2019-05-01] MEDS: cefTRIAXone 1,000 MG in SYRINGE 1 EACH IV SCH (16:00)
[2019-05-01] MEDS: FUROSEMIDE 40 MG TABLET PO SCH (16:01)
[2019-05-01] MEDS: TAMSULOSIN 0.4 MG CAPSULE PO SCH (22:07)
[2019-05-01] MEDS: INSULIN GLARGINE 100 UNIT/ML SUBCUT SCH (22:08)
[2019-05-02] MEDS: ALBUTEROL/IPRATROPIUM 3 ML NEB RESP TX SCH ×4 (01:02→19:37)
[2019-05-02] MEDS: INSULIN REGULAR 100 UNIT/ML SUBCUT SCH ×4 (08:40→21:02)
[2019-05-02] MEDS: INSULIN LISPRO 100 UNIT/ML SUBCUT SCH ×3 (08:41→16:58)
[2019-05-02] MEDS: methylPREDNISolone SOD SUC 40 MG/1 ML VIAL IV SCH ×2 (08:42→20:59)
[2019-05-02] MEDS: PANTOPRAZOLE 40 MG TABLET PO SCH (08:46)
[2019-05-02] MEDS: CETIRIZINE 10 MG TABLET PO SCH (08:46)
[2019-05-02] MEDS: CHOLECALCIFEROL 1,000 UNIT TABLET PO SCH (08:47)
[2019-05-02] MEDS: SERTRALINE 100 MG TABLET PO SCH (08:47)
[2019-05-02] MEDS: ASCORBIC ACID 500 MG TABLET PO SCH (08:47)
[2019-05-02] MEDS: ASPIRIN EC 81 MG TABLET PO SCH (08:47)
[2019-05-02] MEDS: ARIPiprazole 2 MG TABLET PO SCH (08:47)
[2019-05-02] MEDS: FOLIC ACID 0.4 MG TABLET PO SCH (08:47)
[2019-05-02] MEDS: MAGNESIUM CHLORIDE 64 MG TABLET PO SCH ×2 (08:48→20:57)
[2019-05-02] MEDS: POTASSIUM CHLORIDE 20 MEQ TABLET PO SCH (08:48)
[2019-05-02] MEDS: DOCUSATE SODIUM 100 MG CAPSULE PO SCH ×2 (08:48→20:57)
[2019-05-02] MEDS: PREGABALIN 100 MG CAPSULE PO SCH ×2 (08:49→20:57)
[2019-05-02] MEDS: FERROUS SULFATE 325 MG TABLET PO SCH (08:49)
[2019-05-02] MEDS: FUROSEMIDE 20 MG TABLET PO SCH (08:50)
[2019-05-02] MEDS ORDERED: DEXTROMETHORPHAN ER 6 MG/ML 90 ML/BOTTLE PO PRN (10:34)
[2019-05-02] MEDS: cefTRIAXone 1,000 MG in SYRINGE 1 EACH IV SCH (14:51)
[2019-05-02] MEDS: FUROSEMIDE 40 MG TABLET PO SCH (15:57)
[2019-05-02] MEDS: TAMSULOSIN 0.4 MG CAPSULE PO SCH (20:57)
[2019-05-02] MEDS: INSULIN GLARGINE 100 UNIT/ML SUBCUT SCH (20:59)
[2019-05-03] MEDS: ALBUTEROL/IPRATROPIUM 3 ML NEB RESP TX SCH ×4 (01:40→19:18)
[2019-05-03 05:17] LABS: Basophils % 0.1 % (0.0-0.8); Eosinophils # 0.1 10*3/uL (0.0-0.87); Eosinophils % 0.8 % (0.00-10.9); Hematocrit 30.6 VOL% (42.0-52.0); Hemoglobin 10.4 GM/DL (14.0-18.0); Immature Granulocytes % 1.3 %; Lymphocytes # 0.7 10*3/uL (1.4-4.0); Lymphocytes % 9.2 % (21.2-54.2); Mean Platelet Volume 10.1 FL (9.6-12.0); Monocytes % 3.9 % (1.7-12.7); Neutrophils % 84.7 % (38.7-73.9); Platelet Count 132 T/CUMM (130-400); Red Blood Count 3.22 MC/CUMM (3.8-5.5); Red Cell Distribution Width 17.7 % (9.3-17.3); White Blood Count 7.5 T/CUMM (4-12)
[2019-05-03 05:45] LABS: Osmolality,Calculated 289.7 MOS/KG (273-304)
[2019-05-03] MEDS: INSULIN LISPRO 100 UNIT/ML SUBCUT SCH ×3 (08:21→17:00)
[2019-05-03] MEDS: ASCORBIC ACID 500 MG TABLET PO SCH (08:22)
[2019-05-03] MEDS: INSULIN REGULAR 100 UNIT/ML SUBCUT SCH ×4 (08:22→21:49)
[2019-05-03] MEDS: CHOLECALCIFEROL 1,000 UNIT TABLET PO SCH (08:22)
[2019-05-03] MEDS: ASPIRIN EC 81 MG TABLET PO SCH (08:22)
[2019-05-03] MEDS: DOCUSATE SODIUM 100 MG CAPSULE PO SCH ×2 (08:23→20:26)
[2019-05-03] MEDS: POTASSIUM CHLORIDE 20 MEQ TABLET PO SCH (08:23)
[2019-05-03] MEDS: SERTRALINE 100 MG TABLET PO SCH (08:23)
[2019-05-03] MEDS: PREGABALIN 100 MG CAPSULE PO SCH ×2 (08:23→20:26)
[2019-05-03] MEDS: MAGNESIUM CHLORIDE 64 MG TABLET PO SCH ×2 (08:23→20:26)
[2019-05-03] MEDS: PANTOPRAZOLE 40 MG TABLET PO SCH (08:23)
[2019-05-03] MEDS: ARIPiprazole 2 MG TABLET PO SCH (08:24)
[2019-05-03] MEDS: FERROUS SULFATE 325 MG TABLET PO SCH (08:24)
[2019-05-03] MEDS: CETIRIZINE 10 MG TABLET PO SCH (08:24)
[2019-05-03] MEDS: FOLIC ACID 0.4 MG TABLET PO SCH (08:24)
[2019-05-03] MEDS: methylPREDNISolone SOD SUC 40 MG/1 ML VIAL IV SCH ×2 (08:31→20:25)
[2019-05-03] MEDS: FUROSEMIDE 20 MG TABLET PO SCH (08:34)
[2019-05-03] MEDS: cefTRIAXone 1,000 MG in SYRINGE 1 EACH IV SCH (14:21)
[2019-05-03] MEDS: FUROSEMIDE 40 MG TABLET PO SCH (17:00)
[2019-05-03] MEDS: guaiFENesin 200 MG/10 ML UDCUP PO PRN (20:25)
[2019-05-03] MEDS: TAMSULOSIN 0.4 MG CAPSULE PO SCH (20:26)
[2019-05-03] MEDS: INSULIN GLARGINE 100 UNIT/ML SUBCUT SCH (21:48)
[2019-05-04] MEDS: ALBUTEROL/IPRATROPIUM 3 ML NEB RESP TX SCH ×4 (01:50→20:15)
[2019-05-04] MEDS: guaiFENesin 200 MG/10 ML UDCUP PO PRN ×2 (07:53→16:18)
[2019-05-04] MEDS: INSULIN LISPRO 100 UNIT/ML SUBCUT SCH ×3 (08:26→16:07)
[2019-05-04] MEDS: INSULIN REGULAR 100 UNIT/ML SUBCUT SCH ×4 (08:32→21:03)
[2019-05-04] MEDS: ARIPiprazole 2 MG TABLET PO SCH (08:33)
[2019-05-04] MEDS: PREGABALIN 100 MG CAPSULE PO SCH ×2 (08:33→20:16)
[2019-05-04] MEDS: POTASSIUM CHLORIDE 20 MEQ TABLET PO SCH (08:33)
[2019-05-04] MEDS: SERTRALINE 100 MG TABLET PO SCH (08:33)
[2019-05-04] MEDS: PANTOPRAZOLE 40 MG TABLET PO SCH (08:33)
[2019-05-04] MEDS: CETIRIZINE 10 MG TABLET PO SCH (08:34)
[2019-05-04] MEDS: MAGNESIUM CHLORIDE 64 MG TABLET PO SCH ×2 (08:34→20:15)
[2019-05-04] MEDS: ASPIRIN EC 81 MG TABLET PO SCH (08:34)
[2019-05-04] MEDS: DOCUSATE SODIUM 100 MG CAPSULE PO SCH ×2 (08:34→20:16)
[2019-05-04] MEDS: FOLIC ACID 0.4 MG TABLET PO SCH (08:34)
[2019-05-04] MEDS: methylPREDNISolone SOD SUC 40 MG/1 ML VIAL IV SCH ×2 (08:40→20:15)
[2019-05-04] MEDS: ASCORBIC ACID 500 MG TABLET PO SCH (08:44)
[2019-05-04] MEDS: FUROSEMIDE 20 MG TABLET PO SCH (08:44)
[2019-05-04] MEDS: CHOLECALCIFEROL 1,000 UNIT TABLET PO SCH (08:44)
[2019-05-04] MEDS: FERROUS SULFATE 325 MG TABLET PO SCH (08:44)
[2019-05-04] MEDS: cefTRIAXone 1,000 MG in SYRINGE 1 EACH IV SCH (14:12)
[2019-05-04] MEDS: FUROSEMIDE 40 MG TABLET PO SCH (16:06)
[2019-05-04] MEDS: TAMSULOSIN 0.4 MG CAPSULE PO SCH (20:16)
[2019-05-04] MEDS: INSULIN GLARGINE 100 UNIT/ML SUBCUT SCH (21:02)
[2019-05-05] MEDS: ALBUTEROL/IPRATROPIUM 3 ML NEB RESP TX SCH ×3 (00:45→13:55)
[2019-05-05 05:42] LABS: Basophils % 0.1 % (0.0-0.8); Eosinophils # 0.1 10*3/uL (0.0-0.87); Eosinophils % 1.5 % (0.00-10.9); Hematocrit 30.2 VOL% (42.0-52.0); Hemoglobin 9.9 GM/DL (14.0-18.0); Immature Granulocytes % 1.7 %; Immature Granulocytes Absolute 0.12 #; Lymphocytes # 0.7 10*3/uL (1.4-4.0); Lymphocytes % 10.1 % (21.2-54.2); Mean Corpuscular HGB Conc 32.8 GM/DL (32-36); Mean Platelet Volume 9.9 FL (9.6-12.0); Monocytes % 4.3 % (1.7-12.7); Neutrophils % 82.3 % (38.7-73.9); Platelet Count 136 T/CUMM (130-400); Red Blood Count 3.18 MC/CUMM (3.8-5.5); Red Cell Distribution Width 17.4 % (9.3-17.3); White Blood Count 7.3 T/CUMM (4-12)
[2019-05-05 06:08] LABS: Calcium 8.6 MG/DL (8.5-10.1); Osmolality,Calculated 287.8 MOS/KG (273-304)
[2019-05-05] MEDS: FUROSEMIDE 20 MG TABLET PO SCH (08:49)
[2019-05-05] MEDS: ASPIRIN EC 81 MG TABLET PO SCH (08:49)
[2019-05-05] MEDS: SERTRALINE 100 MG TABLET PO SCH (08:49)
[2019-05-05] MEDS: ARIPiprazole 2 MG TABLET PO SCH (08:49)
[2019-05-05] MEDS: POTASSIUM CHLORIDE 20 MEQ TABLET PO SCH (08:49)
[2019-05-05] MEDS: DOCUSATE SODIUM 100 MG CAPSULE PO SCH (08:49)
[2019-05-05] MEDS: MAGNESIUM CHLORIDE 64 MG TABLET PO SCH (08:50)
[2019-05-05] MEDS: FOLIC ACID 0.4 MG TABLET PO SCH (08:50)
[2019-05-05] MEDS: CETIRIZINE 10 MG TABLET PO SCH (08:50)
[2019-05-05] MEDS: ASCORBIC ACID 500 MG TABLET PO SCH (08:50)
[2019-05-05] MEDS: PREGABALIN 100 MG CAPSULE PO SCH (08:50)
[2019-05-05] MEDS: FERROUS SULFATE 325 MG TABLET PO SCH (08:50)
[2019-05-05] MEDS: PANTOPRAZOLE 40 MG TABLET PO SCH (08:50)
[2019-05-05] MEDS: CHOLECALCIFEROL 1,000 UNIT TABLET PO SCH (08:50)
[2019-05-05] MEDS: INSULIN REGULAR 100 UNIT/ML SUBCUT SCH ×3 (08:51→17:07)
[2019-05-05] MEDS: INSULIN LISPRO 100 UNIT/ML SUBCUT SCH ×2 (08:51→11:57)
[2019-05-05] MEDS: methylPREDNISolone SOD SUC 40 MG/1 ML VIAL IV SCH (08:52)
[2019-05-05] MEDS: cefTRIAXone 1,000 MG in SYRINGE 1 EACH IV SCH (14:44)
[2019-05-05 16:00] VITALS: BP 121/60
[2019-05-05] MEDS: FUROSEMIDE 40 MG TABLET PO SCH (16:10)
== END 2019-05-05 16:52 | disposition hospice, home (50) | DRG 190 ==
LOC: EDBD → EDUNIT# → N.ED 14:18 → N.EDINP 14:18 → N.2E 17:07
PROVIDERS: ADMIT Family Medicine; ATTEND Family Medicine

== ENCOUNTER 2019-07-23 16:18 | Inpatient (IN) ==
[2019-07-23] MEDS ORDERED: VANCOMYCIN INJ 1,000 MG in SODIUM CHLORIDE 0.9% 250 ML IV STA (16:38)
[2019-07-23] MEDS ORDERED: methylPREDNISolone SOD SUC 125 MG/2 ML VIAL IV STA (16:42)
[2019-07-23 17:15] LABS: Basophils % 0.2 % (0.0-0.8); Eosinophils # 1.6 10*3/uL (0.0-0.87); Eosinophils % 15.7 % (0.00-10.9); Hematocrit 32.3 VOL% (42.0-52.0); Hemoglobin 10.9 GM/DL (14.0-18.0); Immature Granulocytes % 0.8 %; Immature Granulocytes Absolute 0.08 #; Lymphocytes # 0.6 10*3/uL (1.4-4.0); Lymphocytes % 5.7 % (21.2-54.2); Mean Corpuscular HGB Conc 33.7 GM/DL (32-36); Mean Corpuscular Volume 93.6 FL (87-102); Mean Platelet Volume 9.6 FL (9.6-12.0); Monocytes % 4.5 % (1.7-12.7); Neutrophils % 73.1 % (38.7-73.9); Platelet Count 130 T/CUMM (130-400); Red Blood Count 3.45 MC/CUMM (3.8-5.5); Red Cell Distribution Width 18.6 % (9.3-17.3); White Blood Count 10.1 T/CUMM (4-12)
[2019-07-23 17:25] LABS: PT Patient Result 10.7 SECS (9.6-12.2)
[2019-07-23 17:42] LABS: Eosinophils 19 % (0-10); Lymphocytes 1 % (20-55); Segmented Neutrophils 79 % (50-85); Total Cells Counted 100
[2019-07-23 17:43] LABS: Alanine Aminotransferase 26 U/L (16-61); Albumin 3.2 G/DL (3.4-5.0); Alkaline Phosphatase 65 U/L (45-117); Amylase 16 U/L (25-115); Aspartate Amino Transferase 15 U/L (0-37); Blood Urea Nitrogen 29 MG/DL (7-18); Calcium 8.7 MG/DL (8.5-10.1); Estimated Glom Filtration Rate 91 ML/MIN; Glucose 298 MG/DL (74-106); Hypochromasia Slight; Osmolality,Calculated 286.1 MOS/KG (273-304); Platelet Estimate Adequate; Total Protein 6.8 G/DL (6.4-8.3); Troponin I < 0.015 NG/ML (0.00-0.045)
[2019-07-23] MEDS ORDERED: ACETAMINOPHEN 325 MG TABLET PO PRN (18:22)
[2019-07-23] MEDS ORDERED: GLUCAGON 1 MG VIAL IM PRN (18:22)
[2019-07-23] MEDS ORDERED: ONDANSETRON 4 MG/2 ML VIAL IV PRN (18:22)
[2019-07-23] MEDS ORDERED: DEXTROSE 10% 250 ML BAG IV PRN (18:22)
[2019-07-23 18:29] LABS: Apearance,Urine Slightly Hazy (Clear); Urine Color Yellow (Yellow)
[2019-07-23 18:30] LABS: Bacteria,Urine Occasional /HPF (Few); Bilirubin,Urine Negative (Negative); Blood, Urine Negative (Negative); Glucose,Urine (UA) Negative (Negative); Ketones,Urine Negative (Negative); Mucus,Urine Occasional /LPF (Occasional); Nitrite,Urine Negative (Negative); Protein,Urine Negative; RBC,Urine 3 /HPF (0-4); Urine Specific Gravity 1.015 (1.001-1.035); WBC,Urine 29 /HPF (0-6)
[2019-07-23] MEDS ORDERED: DOCUSATE SODIUM 100 MG CAPSULE PO PRN (19:35)
[2019-07-23] MEDS ORDERED: BUDESONIDE/FORMOTEROL 160-4.5 INHALER 6 GM INH PRN (19:35)
[2019-07-23] MEDS ORDERED: TAMSULOSIN 0.4 MG CAPSULE PO SCH (21:00)
[2019-07-23] MEDS ORDERED: VANCOMYCIN INJ 1,500 MG in SODIUM CHLORIDE 0.9% 500 ML IV SCH (21:00)
[2019-07-23] MEDS: CHOLECALCIFEROL 1,000 UNIT TABLET PO SCH (21:18)
[2019-07-23] MEDS: FUROSEMIDE 40 MG TABLET PO SCH (21:18)
[2019-07-23] MEDS: PREGABALIN 100 MG CAPSULE PO SCH (21:18)
[2019-07-23] MEDS: FOLIC ACID 0.4 MG TABLET PO SCH (21:19)
[2019-07-23] MEDS: INSULIN GLARGINE 100 UNIT/ML SUBCUT SCH (21:19)
[2019-07-23] MEDS: clonazePAM 0.5 MG TABLET PO SCH (21:19)
[2019-07-23] MEDS: FERROUS SULFATE 325 MG TABLET PO SCH (21:19)
[2019-07-23] MEDS: ASCORBIC ACID 500 MG TABLET PO SCH (21:19)
[2019-07-23] MEDS: INSULIN REGULAR 100 UNIT/ML SUBCUT SCH (21:19)
[2019-07-23] MEDS: ALBUTEROL/IPRATROPIUM 3 ML NEB RESP TX SCH (23:18)
[2019-07-24] MEDS: methylPREDNISolone SOD SUC 125 MG/2 ML VIAL IV SCH ×3 (00:23→18:16)
[2019-07-24] MEDS: ALBUTEROL/IPRATROPIUM 3 ML NEB RESP TX SCH ×3 (07:43→19:53)
[2019-07-24] MEDS ORDERED: POTASSIUM CHLORIDE 20 MEQ TABLET PO SCH (09:00)
[2019-07-24] MEDS: INSULIN REGULAR 100 UNIT/ML SUBCUT SCH ×4 (09:19→22:05)
[2019-07-24] MEDS: PREGABALIN 100 MG CAPSULE PO SCH ×2 (09:20→20:11)
[2019-07-24] MEDS: FAMOTIDINE 20 MG TABLET PO SCH ×2 (09:21→20:11)
[2019-07-24] MEDS: FUROSEMIDE 40 MG TABLET PO SCH (09:21)
[2019-07-24] MEDS: ASPIRIN EC 81 MG TABLET PO SCH (09:21)
[2019-07-24] MEDS: LORATADINE 10 MG TABLET PO SCH (09:21)
[2019-07-24] MEDS: PANTOPRAZOLE 40 MG TABLET PO SCH (09:21)
[2019-07-24] MEDS: SERTRALINE 100 MG TABLET PO SCH (09:22)
[2019-07-24] MEDS: clonazePAM 0.5 MG TABLET PO SCH ×3 (09:22→22:07)
[2019-07-24] MEDS: cefTRIAXone 2,000 MG in SYRINGE 1 EACH IV SCH (10:43)
[2019-07-24] MEDS ORDERED: HydrOXYzine PAMOATE 25 MG CAPSULE PO ONE (12:41)
[2019-07-24] MEDS ORDERED: INSULIN ASPART PROTAMINE/ASPART 70/30 100 UNIT/ML SUBCUT SCH ×2 (13:02→16:30)
[2019-07-24] MEDS: INSULIN LISPRO 100 UNIT/ML SUBCUT SCH (16:27)
[2019-07-24] MEDS: CHOLECALCIFEROL 1,000 UNIT TABLET PO SCH (20:10)
[2019-07-24] MEDS: FOLIC ACID 0.4 MG TABLET PO SCH (20:11)
[2019-07-24] MEDS: FERROUS SULFATE 325 MG TABLET PO SCH (20:11)
[2019-07-24] MEDS: ASCORBIC ACID 500 MG TABLET PO SCH (20:11)
[2019-07-24] MEDS: INSULIN GLARGINE 100 UNIT/ML SUBCUT SCH (22:00)
[2019-07-24] MEDS: EPLERENONE 25 MG TABLET PO SCH (22:07)
[2019-07-24] MEDS: HydrOXYzine PAMOATE 25 MG CAPSULE PO SCH (22:07)
[2019-07-25] MEDS: methylPREDNISolone SOD SUC 125 MG/2 ML VIAL IV SCH ×2 (05:04→18:20)
[2019-07-25 05:10] LABS: Calcium 9.2 MG/DL (8.5-10.1); Osmolality,Calculated 293.5 MOS/KG (273-304)
[2019-07-25] MEDS: ALBUTEROL/IPRATROPIUM 3 ML NEB RESP TX SCH ×3 (07:20→20:29)
[2019-07-25] MEDS: INSULIN REGULAR 100 UNIT/ML SUBCUT SCH ×4 (08:18→20:33)
[2019-07-25] MEDS: INSULIN LISPRO 100 UNIT/ML SUBCUT SCH ×3 (08:24→17:36)
[2019-07-25] MEDS: FAMOTIDINE 20 MG TABLET PO SCH ×2 (09:57→20:35)
[2019-07-25] MEDS: clonazePAM 0.5 MG TABLET PO SCH ×3 (09:57→20:36)
[2019-07-25] MEDS: PREGABALIN 100 MG CAPSULE PO SCH ×2 (09:58→20:35)
[2019-07-25] MEDS: PANTOPRAZOLE 40 MG TABLET PO SCH (09:58)
[2019-07-25] MEDS: SERTRALINE 100 MG TABLET PO SCH (09:58)
[2019-07-25] MEDS: ASPIRIN EC 81 MG TABLET PO SCH (09:58)
[2019-07-25] MEDS: FUROSEMIDE 20 MG TABLET PO SCH (09:58)
[2019-07-25] MEDS: LORATADINE 10 MG TABLET PO SCH (09:59)
[2019-07-25] MEDS: cefTRIAXone 2,000 MG in SYRINGE 1 EACH IV SCH (09:59)
[2019-07-25] MEDS: EPLERENONE 25 MG TABLET PO SCH ×2 (10:12→20:35)
[2019-07-25] MEDS: INSULIN GLARGINE 100 UNIT/ML SUBCUT SCH (20:33)
[2019-07-25] MEDS: ASCORBIC ACID 500 MG TABLET PO SCH (20:35)
[2019-07-25] MEDS: TRIAMCINOLONE 0.1% OINT 15 GM TUBE TOP SCH (20:35)
[2019-07-25] MEDS: HydrOXYzine PAMOATE 25 MG CAPSULE PO SCH (20:35)
[2019-07-25] MEDS: FERROUS SULFATE 325 MG TABLET PO SCH (20:36)
[2019-07-25] MEDS: CHOLECALCIFEROL 1,000 UNIT TABLET PO SCH (20:36)
[2019-07-25] MEDS: FOLIC ACID 0.4 MG TABLET PO SCH (20:39)
[2019-07-26] MEDS: methylPREDNISolone SOD SUC 125 MG/2 ML VIAL IV SCH ×2 (05:48→17:21)
[2019-07-26] MEDS: ALBUTEROL/IPRATROPIUM 3 ML NEB RESP TX SCH ×3 (07:23→19:26)
[2019-07-26] MEDS: INSULIN REGULAR 100 UNIT/ML SUBCUT SCH ×4 (08:59→21:51)
[2019-07-26] MEDS: INSULIN LISPRO 100 UNIT/ML SUBCUT SCH ×3 (08:59→17:20)
[2019-07-26] MEDS: cefTRIAXone 2,000 MG in SYRINGE 1 EACH IV SCH (09:40)
[2019-07-26] MEDS: FUROSEMIDE 20 MG TABLET PO SCH (09:41)
[2019-07-26] MEDS: PREGABALIN 100 MG CAPSULE PO SCH ×2 (09:41→20:37)
[2019-07-26] MEDS: SERTRALINE 100 MG TABLET PO SCH (09:41)
[2019-07-26] MEDS: PANTOPRAZOLE 40 MG TABLET PO SCH (09:41)
[2019-07-26] MEDS: LORATADINE 10 MG TABLET PO SCH (09:42)
[2019-07-26] MEDS: clonazePAM 0.5 MG TABLET PO SCH ×3 (09:42→20:37)
[2019-07-26] MEDS: EPLERENONE 25 MG TABLET PO SCH ×2 (09:42→20:37)
[2019-07-26] MEDS: ASPIRIN EC 81 MG TABLET PO SCH (09:42)
[2019-07-26] MEDS: FAMOTIDINE 20 MG TABLET PO SCH ×2 (09:42→20:38)
[2019-07-26] MEDS: TRIAMCINOLONE 0.1% OINT 15 GM TUBE TOP SCH ×3 (09:43→20:40)
[2019-07-26] MEDS: DOXYCYCLINE HYCLATE INJ 100 MG in SODIUM CHLORIDE 0.9% 100 ML IV SCH ×2 (13:25→21:57)
[2019-07-26] MEDS: HydrOXYzine PAMOATE 25 MG CAPSULE PO SCH (20:37)
[2019-07-26] MEDS: FOLIC ACID 0.4 MG TABLET PO SCH (20:37)
[2019-07-26] MEDS: FERROUS SULFATE 325 MG TABLET PO SCH (20:38)
[2019-07-26] MEDS: CHOLECALCIFEROL 1,000 UNIT TABLET PO SCH (20:38)
[2019-07-26] MEDS: ASCORBIC ACID 500 MG TABLET PO SCH (20:38)
[2019-07-26] MEDS: INSULIN GLARGINE 100 UNIT/ML SUBCUT SCH (21:50)
[2019-07-27] MEDS: methylPREDNISolone SOD SUC 125 MG/2 ML VIAL IV SCH ×2 (07:12→17:28)
[2019-07-27] MEDS: ALBUTEROL/IPRATROPIUM 3 ML NEB RESP TX SCH ×3 (07:13→19:45)
[2019-07-27] MEDS: INSULIN LISPRO 100 UNIT/ML SUBCUT SCH ×3 (08:02→16:10)
[2019-07-27] MEDS: INSULIN REGULAR 100 UNIT/ML SUBCUT SCH ×4 (08:03→21:31)
[2019-07-27] MEDS: cefTRIAXone 2,000 MG in SYRINGE 1 EACH IV SCH (08:03)
[2019-07-27] MEDS: SERTRALINE 100 MG TABLET PO SCH (08:04)
[2019-07-27] MEDS: FUROSEMIDE 20 MG TABLET PO SCH (08:04)
[2019-07-27] MEDS: PANTOPRAZOLE 40 MG TABLET PO SCH (08:04)
[2019-07-27] MEDS: FAMOTIDINE 20 MG TABLET PO SCH ×2 (08:04→21:31)
[2019-07-27] MEDS: clonazePAM 0.5 MG TABLET PO SCH ×3 (08:04→21:31)
[2019-07-27] MEDS: EPLERENONE 25 MG TABLET PO SCH ×2 (08:04→21:30)
[2019-07-27] MEDS: ASPIRIN EC 81 MG TABLET PO SCH (08:04)
[2019-07-27] MEDS: LORATADINE 10 MG TABLET PO SCH (08:04)
[2019-07-27] MEDS: PREGABALIN 100 MG CAPSULE PO SCH ×2 (08:04→21:30)
[2019-07-27] MEDS: TRIAMCINOLONE 0.1% OINT 15 GM TUBE TOP SCH ×3 (08:05→21:31)
[2019-07-27] MEDS: diphenhydrAMINE CAP 25 MG CAPSULE PO PRN ×2 (13:59→21:30)
[2019-07-27] MEDS: HydrOXYzine PAMOATE 25 MG CAPSULE PO SCH (21:30)
[2019-07-27] MEDS: FOLIC ACID 0.4 MG TABLET PO SCH (21:30)
[2019-07-27] MEDS: FERROUS SULFATE 325 MG TABLET PO SCH (21:30)
[2019-07-27] MEDS: DOXYCYCLINE HYCLATE 100 MG CAPSULE PO SCH (21:30)
[2019-07-27] MEDS: CHOLECALCIFEROL 1,000 UNIT TABLET PO SCH (21:30)
[2019-07-27] MEDS: ASCORBIC ACID 500 MG TABLET PO SCH (21:31)
[2019-07-27] MEDS: INSULIN GLARGINE 100 UNIT/ML SUBCUT SCH (21:32)
[2019-07-28 05:29] LABS: Basophils % 0.4 % (0.0-0.8); Eosinophils % 0.3 % (0.00-10.9); Hematocrit 31.6 VOL% (42.0-52.0); Hemoglobin 10.6 GM/DL (14.0-18.0); Immature Granulocytes % 4.4 %; Immature Granulocytes Absolute 0.34 #; Lymphocytes # 1.1 10*3/uL (1.4-4.0); Lymphocytes % 13.7 % (21.2-54.2); Mean Corpuscular HGB Conc 33.5 GM/DL (32-36); Mean Corpuscular Volume 93.2 FL (87-102); Mean Platelet Volume 10.1 FL (9.6-12.0); Monocytes % 6.6 % (1.7-12.7); Neutrophils % 74.6 % (38.7-73.9); Platelet Count 126 T/CUMM (130-400); Red Blood Count 3.39 MC/CUMM (3.8-5.5); Red Cell Distribution Width 17.5 % (9.3-17.3); White Blood Count 7.7 T/CUMM (4-12)
[2019-07-28 05:59] LABS: Osmolality,Calculated 288.8 MOS/KG (273-304)
[2019-07-28] MEDS: methylPREDNISolone SOD SUC 125 MG/2 ML VIAL IV SCH ×2 (06:28→20:56)
[2019-07-28] MEDS: ALBUTEROL/IPRATROPIUM 3 ML NEB RESP TX SCH ×3 (07:35→19:37)
[2019-07-28] MEDS: cefTRIAXone 2,000 MG in SYRINGE 1 EACH IV SCH (09:01)
[2019-07-28] MEDS: PANTOPRAZOLE 40 MG TABLET PO SCH (09:02)
[2019-07-28] MEDS: EPLERENONE 25 MG TABLET PO SCH ×2 (09:02→22:06)
[2019-07-28] MEDS: PREGABALIN 100 MG CAPSULE PO SCH ×2 (09:04→21:57)
[2019-07-28] MEDS: LORATADINE 10 MG TABLET PO SCH (09:05)
[2019-07-28] MEDS: diphenhydrAMINE CAP 25 MG CAPSULE PO PRN (09:06)
[2019-07-28] MEDS: FAMOTIDINE 20 MG TABLET PO SCH ×2 (09:07→21:57)
[2019-07-28] MEDS: ASPIRIN EC 81 MG TABLET PO SCH (09:07)
[2019-07-28] MEDS: DOXYCYCLINE HYCLATE 100 MG CAPSULE PO SCH ×2 (09:07→21:59)
[2019-07-28] MEDS: TRIAMCINOLONE 0.1% OINT 15 GM TUBE TOP SCH (09:08)
[2019-07-28] MEDS: clonazePAM 0.5 MG TABLET PO SCH ×3 (09:08→22:00)
[2019-07-28] MEDS: SERTRALINE 100 MG TABLET PO SCH (09:09)
[2019-07-28] MEDS: INSULIN REGULAR 100 UNIT/ML SUBCUT SCH ×4 (09:10→22:00)
[2019-07-28] MEDS: VANCOMYCIN INJ 1,500 MG in SODIUM CHLORIDE 0.9% 500 ML IV SCH ×2 (09:41→22:00)
[2019-07-28] MEDS: INSULIN LISPRO 100 UNIT/ML SUBCUT SCH ×3 (09:42→16:56)
[2019-07-28] MEDS: TRIAMCINOLONE 0.1% OINT 80 GM TUBE TOP SCH ×2 (15:50→20:55)
[2019-07-28] MEDS: INSULIN GLARGINE 100 UNIT/ML SUBCUT SCH (16:57)
[2019-07-28] MEDS: FOLIC ACID 0.4 MG TABLET PO SCH (21:58)
[2019-07-28] MEDS: FERROUS SULFATE 325 MG TABLET PO SCH (21:58)
[2019-07-28] MEDS: CHOLECALCIFEROL 1,000 UNIT TABLET PO SCH (21:58)
[2019-07-28] MEDS: ASCORBIC ACID 500 MG TABLET PO SCH (21:59)
[2019-07-28] MEDS: HydrOXYzine PAMOATE 25 MG CAPSULE PO SCH (21:59)
[2019-07-29 05:55] LABS: Calcium 8.8 MG/DL (8.5-10.1); Osmolality,Calculated 281.1 MOS/KG (273-304)
[2019-07-29] MEDS: ALBUTEROL/IPRATROPIUM 3 ML NEB RESP TX SCH ×3 (07:54→19:19)
[2019-07-29] MEDS: methylPREDNISolone SOD SUC 125 MG/2 ML VIAL IV SCH ×2 (09:00→21:54)
[2019-07-29] MEDS: DOXYCYCLINE HYCLATE 100 MG CAPSULE PO SCH ×2 (09:02→21:54)
[2019-07-29] MEDS: diphenhydrAMINE CAP 25 MG CAPSULE PO PRN (09:02)
[2019-07-29] MEDS: PREGABALIN 100 MG CAPSULE PO SCH ×2 (09:02→21:53)
[2019-07-29] MEDS: INSULIN REGULAR 100 UNIT/ML SUBCUT SCH ×4 (09:03→20:49)
[2019-07-29] MEDS: INSULIN LISPRO 100 UNIT/ML SUBCUT SCH ×3 (09:03→16:29)
[2019-07-29] MEDS: PANTOPRAZOLE 40 MG TABLET PO SCH (09:04)
[2019-07-29] MEDS: FAMOTIDINE 20 MG TABLET PO SCH ×2 (09:04→21:54)
[2019-07-29] MEDS: ASPIRIN EC 81 MG TABLET PO SCH (09:04)
[2019-07-29] MEDS: clonazePAM 0.5 MG TABLET PO SCH ×3 (09:04→21:54)
[2019-07-29] MEDS: EPLERENONE 25 MG TABLET PO SCH (09:04)
[2019-07-29] MEDS: LORATADINE 10 MG TABLET PO SCH (09:06)
[2019-07-29] MEDS: SERTRALINE 100 MG TABLET PO SCH (09:06)
[2019-07-29] MEDS: cefTRIAXone 2,000 MG in SYRINGE 1 EACH IV SCH (09:07)
[2019-07-29] MEDS: TRIAMCINOLONE 0.1% OINT 80 GM TUBE TOP SCH ×3 (09:08→21:56)
[2019-07-29] MEDS: VANCOMYCIN INJ 1,500 MG in SODIUM CHLORIDE 0.9% 500 ML IV SCH (09:10)
[2019-07-29] MEDS: INSULIN GLARGINE 100 UNIT/ML SUBCUT SCH ×2 (09:28→16:30)
[2019-07-29] MEDS ORDERED: diphenhydrAMINE CAP 25 MG CAPSULE PO PRN (18:59)
[2019-07-29] MEDS: CHOLECALCIFEROL 1,000 UNIT TABLET PO SCH (21:54)
[2019-07-29] MEDS: ASCORBIC ACID 500 MG TABLET PO SCH (21:54)
[2019-07-29] MEDS: HydrOXYzine PAMOATE 25 MG CAPSULE PO SCH (21:54)
[2019-07-29] MEDS: FERROUS SULFATE 325 MG TABLET PO SCH (21:54)
[2019-07-29] MEDS: FOLIC ACID 0.4 MG TABLET PO SCH (21:54)
[2019-07-30 06:50] LABS: Basophils % 0.2 % (0.0-0.8); Eosinophils % 0.1 % (0.00-10.9); Hematocrit 31.9 VOL% (42.0-52.0); Hemoglobin 10.9 GM/DL (14.0-18.0); Immature Granulocytes % 2.5 %; Immature Granulocytes Absolute 0.23 #; Mean Corpuscular HGB Conc 34.2 GM/DL (32-36); Mean Corpuscular Volume 92.7 FL (87-102); Mean Platelet Volume 10.5 FL (9.6-12.0); Monocytes % 4.1 % (1.7-12.7); Neutrophils % 82.1 % (38.7-73.9); Platelet Count 102 T/CUMM (130-400); Red Blood Count 3.44 MC/CUMM (3.8-5.5); Red Cell Distribution Width 17.7 % (9.3-17.3); White Blood Count 9.1 T/CUMM (4-12)
[2019-07-30 07:25] LABS: Albumin 2.9 G/DL (3.4-5.0); Bilirubin,Total 1.3 MG/DL (0.2-1.0); Calcium 8.7 MG/DL (8.5-10.1); Osmolality,Calculated 291.7 MOS/KG (273-304); Total Protein 5.9 G/DL (6.4-8.3)
[2019-07-30] MEDS: ALBUTEROL/IPRATROPIUM 3 ML NEB RESP TX SCH ×3 (07:39→20:20)
[2019-07-30] MEDS: INSULIN GLARGINE 100 UNIT/ML SUBCUT SCH ×3 (08:02→16:44)
[2019-07-30] MEDS: INSULIN REGULAR 100 UNIT/ML SUBCUT SCH ×4 (09:01→20:27)
[2019-07-30] MEDS: INSULIN LISPRO 100 UNIT/ML SUBCUT SCH ×3 (09:01→16:44)
[2019-07-30] MEDS: cefTRIAXone 2,000 MG in SYRINGE 1 EACH IV SCH (09:02)
[2019-07-30] MEDS: ASPIRIN EC 81 MG TABLET PO SCH (09:02)
[2019-07-30] MEDS: FAMOTIDINE 20 MG TABLET PO SCH ×2 (09:02→20:28)
[2019-07-30] MEDS: clonazePAM 0.5 MG TABLET PO SCH ×3 (09:02→20:30)
[2019-07-30] MEDS: methylPREDNISolone SOD SUC 125 MG/2 ML VIAL IV SCH ×2 (09:02→20:32)
[2019-07-30] MEDS: AMITRIPTYLINE 10 MG TABLET PO SCH ×2 (09:02→20:30)
[2019-07-30] MEDS: DOXYCYCLINE HYCLATE 100 MG CAPSULE PO SCH ×2 (09:02→20:29)
[2019-07-30] MEDS: LORATADINE 10 MG TABLET PO SCH (09:02)
[2019-07-30] MEDS: PANTOPRAZOLE 40 MG TABLET PO SCH (09:03)
[2019-07-30] MEDS: SERTRALINE 100 MG TABLET PO SCH (09:03)
[2019-07-30] MEDS: TRIAMCINOLONE 0.1% OINT 80 GM TUBE TOP SCH ×3 (09:03→20:37)
[2019-07-30] MEDS: PREGABALIN 100 MG CAPSULE PO SCH ×2 (09:03→20:28)
[2019-07-30] MEDS: FOLIC ACID 0.4 MG TABLET PO SCH (20:29)
[2019-07-30] MEDS: CHOLECALCIFEROL 1,000 UNIT TABLET PO SCH (20:29)
[2019-07-30] MEDS: HydrOXYzine PAMOATE 25 MG CAPSULE PO SCH (20:29)
[2019-07-30] MEDS: ASCORBIC ACID 500 MG TABLET PO SCH (20:30)
[2019-07-30] MEDS: FERROUS SULFATE 325 MG TABLET PO SCH (20:30)
[2019-07-31] MEDS: ALBUTEROL/IPRATROPIUM 3 ML NEB RESP TX SCH ×3 (07:21→20:04)
[2019-07-31] MEDS: cefTRIAXone 2,000 MG in SYRINGE 1 EACH IV SCH (09:09)
[2019-07-31] MEDS: INSULIN LISPRO 100 UNIT/ML SUBCUT SCH ×3 (09:10→17:12)
[2019-07-31] MEDS: methylPREDNISolone SOD SUC 125 MG/2 ML VIAL IV SCH ×2 (09:10→20:15)
[2019-07-31] MEDS: INSULIN GLARGINE 100 UNIT/ML SUBCUT SCH ×2 (09:10→17:12)
[2019-07-31] MEDS: ASPIRIN EC 81 MG TABLET PO SCH (09:11)
[2019-07-31] MEDS: DOXYCYCLINE HYCLATE 100 MG CAPSULE PO SCH ×2 (09:11→20:14)
[2019-07-31] MEDS: SERTRALINE 100 MG TABLET PO SCH (09:11)
[2019-07-31] MEDS: INSULIN REGULAR 100 UNIT/ML SUBCUT SCH ×4 (09:11→20:25)
[2019-07-31] MEDS: LORATADINE 10 MG TABLET PO SCH (09:11)
[2019-07-31] MEDS: PREGABALIN 100 MG CAPSULE PO SCH ×2 (09:11→20:14)
[2019-07-31] MEDS: FAMOTIDINE 20 MG TABLET PO SCH ×2 (09:11→20:14)
[2019-07-31] MEDS: AMITRIPTYLINE 10 MG TABLET PO SCH ×2 (09:12→20:14)
[2019-07-31] MEDS: PANTOPRAZOLE 40 MG TABLET PO SCH (09:13)
[2019-07-31] MEDS: TRIAMCINOLONE 0.1% OINT 80 GM TUBE TOP SCH ×3 (09:14→20:26)
[2019-07-31] MEDS: FERROUS SULFATE 325 MG TABLET PO SCH (20:14)
[2019-07-31] MEDS: ASCORBIC ACID 500 MG TABLET PO SCH (20:14)
[2019-07-31] MEDS: FOLIC ACID 0.4 MG TABLET PO SCH (20:14)
[2019-07-31] MEDS: CHOLECALCIFEROL 1,000 UNIT TABLET PO SCH (20:14)
[2019-07-31] MEDS: HydrOXYzine PAMOATE 25 MG CAPSULE PO SCH (20:14)
[2019-08-01 05:31] LABS: Basophils % 0.3 % (0.0-0.8); Eosinophils % 0.3 % (0.00-10.9); Hematocrit 32.8 VOL% (42.0-52.0); Hemoglobin 10.8 GM/DL (14.0-18.0); Immature Granulocytes % 2.4 %; Immature Granulocytes Absolute 0.22 #; Lymphocytes # 1.2 10*3/uL (1.4-4.0); Lymphocytes % 12.6 % (21.2-54.2); Mean Corpuscular HGB Conc 32.9 GM/DL (32-36); Mean Corpuscular Volume 94.8 FL (87-102); Mean Platelet Volume 10.5 FL (9.6-12.0); Monocytes % 4.5 % (1.7-12.7); Neutrophils % 79.9 % (38.7-73.9); Platelet Count 110 T/CUMM (130-400); Red Blood Count 3.46 MC/CUMM (3.8-5.5); Red Cell Distribution Width 17.7 % (9.3-17.3); White Blood Count 9.2 T/CUMM (4-12)
[2019-08-01 05:58] LABS: Calcium 8.8 MG/DL (8.5-10.1); Osmolality,Calculated 283.5 MOS/KG (273-304)
[2019-08-01] MEDS: ALBUTEROL/IPRATROPIUM 3 ML NEB RESP TX SCH ×2 (07:34→14:56)
[2019-08-01] MEDS: INSULIN REGULAR 100 UNIT/ML SUBCUT SCH ×3 (08:16→17:58)
[2019-08-01] MEDS: methylPREDNISolone SOD SUC 125 MG/2 ML VIAL IV SCH (10:32)
[2019-08-01] MEDS: ASPIRIN EC 81 MG TABLET PO SCH (10:32)
[2019-08-01] MEDS: PREGABALIN 100 MG CAPSULE PO SCH (10:33)
[2019-08-01] MEDS: SERTRALINE 100 MG TABLET PO SCH (10:33)
[2019-08-01] MEDS: DOXYCYCLINE HYCLATE 100 MG CAPSULE PO SCH (10:34)
[2019-08-01] MEDS: FAMOTIDINE 20 MG TABLET PO SCH (10:34)
[2019-08-01] MEDS: PANTOPRAZOLE 40 MG TABLET PO SCH (10:35)
[2019-08-01] MEDS: AMITRIPTYLINE 10 MG TABLET PO SCH (10:35)
[2019-08-01] MEDS: INSULIN LISPRO 100 UNIT/ML SUBCUT SCH ×3 (10:35→17:58)
[2019-08-01] MEDS: LORATADINE 10 MG TABLET PO SCH (10:36)
[2019-08-01] MEDS: INSULIN GLARGINE 100 UNIT/ML SUBCUT SCH ×2 (10:36→17:58)
[2019-08-01] MEDS: TRIAMCINOLONE 0.1% OINT 80 GM TUBE TOP SCH ×2 (10:45→17:58)
[2019-08-01 15:46] VITALS: BP 106/48
== END 2019-08-01 18:20 | disposition home health service (06) | DRG 73 ==
LOC: EDUNIT# → EDBD → N.ED 16:18 → N.EDINP 18:19 → N.5E 19:36
PROVIDERS: ADMIT Family Medicine; ATTEND Family Medicine